=== PATIENT | male | born 1935 | race Caucasian/White ===

== ENCOUNTER 2023-11-23 16:31 | Emergency (ER) | payer OTHER, SELFPAY ==
[2023-11-23 16:37] VITALS: BP 165/86
[2023-11-23 17:16] LABS: % Basophils 0.7 % (0-2); % Eosinophils 5.4 % (0-6); % Immature Granulocytes 0.2 % (0-0.5); % Lymphocytes 27.6 % (20.5-51.1); % Monocytes 15.9 % (1.7-9.3); % Neutrophils 50.2 % (42.2-75.2); Absolute Eosinophils 0.3 10^3/uL (0-0.7); Absolute Lymphocytes 1.3 10^3/uL (1.2-3.4); Absolute Monocytes 0.7 10^3/uL (0.1-0.6); Absolute Neutrophils 2.3 10^3/uL (1.4-6.5); Hematocrit 39.3 % (39.0-52.0); Hemoglobin 13.2 g/dL (13.0-18.0); Mean Corp Hgb Conc. 33.6 g/dL (33.0-37.0); Mean Corpuscular Volume 95.2 fL (80.0-94.0); Nucleated Red Blood Cells % 0 % (-); Platelet Count 211 10^3/uL (130-400); Red Blood Cell Count 4.13 10^6/uL (4.70-6.10); Red Cell Dist. Width 12.5 % (11.5-14.5); White Blood Cell Count 4.6 10^3/uL (4.8-10.8)
[2023-11-23 17:24] LABS: ALT (SGPT) 27 U/L (0-50); AST (SGOT) 36 U/L (17-59); Albumin 4.5 g/dl (3.5-5.0); Alkaline Phosphatase 38 U/L (38-126); Blood Urea Nitrogen 21 mg/dl (9-20); Calcium 9.8 mg/dl (8.4-10.2); Carbon Dioxide 28 mmol/L (22-30); Chloride 96 mmol/L (98-107); Glucose 98 mg/dl (70-99); Potassium 4.7 mmol/L (3.5-5.1); Sodium 131 mmol/L (135-145); Total Bilirubin 0.7 mg/dl (0.2-1.3); Total Protein 6.8 g/dl (6.3-8.2); eGFR > 60.00
[2023-11-23 17:34] LABS: Troponin I < 0.012 ng/ml
[2023-11-23 18:29] VITALS: BP 144/73
[2023-11-23 19:00] VITALS: BP 148/81
--- NOTE | 2023-11-23 19:20 | ED.GENMED ---
History of Present Illness
General
Chief Complaint: Cough
Source: patient
Exam Limitations: none
Time Seen by Provider: 11/23/23 19:07
Travel History
Have you had any contact with someone who has COVID-19?: No
Do you have any symptoms of coronavirus? Fever > 100 degrees, chills, cough, shortness of breath, sore throat, loss of taste or smell, muscle aches, or headache?: No
History of Present Illness
History of Present Illness:
This is a 88 year old male that comes in with c/o cough. State that on Saturday he went to the PCP for a cough. States that he was given a Z-pack and Tessalon Pearls. States that he continued to cough so on Saturday he went to . States that they
tested him for COVID and it was negative. States that they increased the dosage on the Tessalon Pearls to 200mg. States that he is still coughing and wheezing. States that he finished the Z-pack tomorrow. States that below his ribs bilateral is
sore and he feels dizzy on and off. Denies any fever, chills, chest pain, SOB, abd pain, nausea, vomiting, diarrhea, headache, urinary burning.
Past History
Past History
ED Past Medical History: Arrthythmia (Atrial fib), Cancer (Skin cancer with Mohs procedure. ), Hypercholesterolemia, Hypothyroidism and Other (Back pain, Neuropathy, PNA, Diverticulitis, )
ED Past Surgical History: Appendectomy and Other (Patient has a history of shoulder surgery, and colonoscopies, Cataracts, )
Patient has exhibited threatening behavior?: No
PSI?: No
Social History
Tobacco: Non-smoker
Alcohol: Occasional
Personal:
Living: with family
Employment: Retired
Review of Systems
Review of Systems
All Other Systems: ROS reviewed and negative except as documented in HPI and ROS
Constitutional: Reports no symptoms; Denies fever or chills
EENT: Reports no symptoms
Respiratory: Reports cough; Denies trouble breathing
Cardiac: Reports no symptoms; Denies chest pain
ABD/GI: Reports no symptoms; Denies abdominal pain, nausea, vomiting or diarrhea
: Reports no symptoms; Denies dysuria, frequency or urgency
Musculoskeletal: Reports no symptoms
Neurological: Reports dizzy (on and off); Denies headache
Psychiatric: Reports no symptoms
Phy Exam
General Physical Exam
General Presentation: no apparent distress
General age: appears stated age
General Skin: warm and dry
General Mental: alert
General Hydration: appears well hydrated
ENT Exam
ENT Exam: TM's normal, pharynx normal and neck supple
Eye Exam
Eye Exam: EOMI
Cardiovascular Exam
Cardiovascular Exam: regular rate/rhythm, no edema and normal peripheral pulses
Pulmonary Exam
Pulmonary Exam: no respiratory distress, no rales, chest non tender, no crackles, no rhonchi and other (with coughing exp wheezing noted. Otherwise lungs clear, Dry cough noted)
Gastrointestinal Exam
Gastrointestinal Exam: normal bowel sounds, non tender, soft, no organomegaly, no pulsatile mass and non distended
Musculoskeletal Exam
Musculoskeletal Exam: full ROM and no edema
Skin Exam
Skin Exam: normal color, warm/dry, no rash and no petechia
Psychiatric Exam
Psychiatric Exam: normal mood/affect
Course
Orders/Labs/Results
Orders:
Orders
11/23/23 16:40
Electrocardiogram (*1) Urgent
Reason for Study: Chest Pain
EKG- Treatment ONCE
11/23/23 17:03
Complete Blood Count/With Diff Urgent
Comprehensive Metabolic Panel Urgent
Troponin I Urgent
11/23/23 19:20
Dexamethasone Sod Phosphate [Decadron] 20 mg IV NOW STA
Abnormal Lab Results
11/23/23
17:03
WBC 4.6 L 10^3/uL
(4.8-10.8)
RBC 4.13 L 10^6/uL
(4.70-6.10)
MCV 95.2 H fL
(80.0-94.0)
MCH 32.0 H pg
(27.0-31.0)
Absolute Monos (auto) 0.7 H 10^3/uL
(0.1-0.6)
Monocytes % 15.9 H %
(1.7-9.3)
Sodium 131 L mmol/L
(135-145)
Chloride 96 L mmol/L
(98-107)
BUN 21 H mg/dl
(9-20)
11/23/23 17:03
11/23/23 17:03
WBC slightly low. Sodium slightly low. Chloride low. Slight Dehydration. Troponin <0.012
Vital Signs
Initial and Last Documented VS:
Initial Vital Signs
Temp Pulse Resp BP Pulse Ox
98.1 F 70 19 165/86 97
11/23/23 16:37 11/23/23 16:37 11/23/23 16:37 11/23/23 16:37 11/23/23 16:37
Last Documented Vital Signs
Temp Pulse Resp BP Pulse Ox
98.1 F 57 15 149/79 98
11/23/23 16:37 11/23/23 19:45 11/23/23 19:45 11/23/23 19:21 11/23/23 19:45
MDM/Problems Addressed
Differential Diagnosis Includes:
PNA, Cough
MDM/Problems Addressed:
This is a 88 year old male that was diagnosed yesterday with Pneumonia. Patient had been put on Z-pack on Saturday and will finish this tomorrow. States that he went to yesterday due to the cough and they increased his Tessalon Pearls. States
that he is still coughing and wheezing.
Will check labs, Give IV steroids
Back into see patient. States that he feels a little better. Explained that the steroid will stay in his system for a day or so. Explained that he has Pneumonia and the cough it not totally going to go away. Continue with the Tessalon Pearls.
Increase his water intake. Follow up with the Family doctor for further evaluation. Return with fever, any SOB. or any other concerns.
Chronic conditions affecting care:
NA
Acute Exacerbation and/or Progression of Chronic Illness:
NA
*Pulse Oximetry
Patient hypoxic: no
*EKG
Interpreted by ED Provider?: Yes
Heart Rate: 59
Rate: bradycardiac
Rhythm: sinus and PVC's
[place]: normal axis
Interval: first degree heart block
QRS Pattern: normal QRS
Ischemia: no ischemia
*Solutions Engineer Interpretation
Rate: normal
Heart Rate: 72
Rhythm: sinus
*Critical Care Note
Total Time (30-74mins, 75-104mins- exclusive of procedures): Not Applicable
ED Attending Note
-
Portions of this chart may have been created with voice recognition software.� Occasional wrong word or��sound alike� substitutions may have occurred due to the inherent limitations of voice recognition software.
Discharge Plan
Departure
Patient Disposition: Home (Routine Discharge)
Date of Disposition: 11/23/23
Time of Disposition: 20:57
Patient with high blood pressure during this ER visit?: Yes
Condition: Good
Covid-19: Not Applicable
Discharge Problem:
Cough due to Pneumonia
Instructions: Pneumonia, Adult (DC), Cough, Adult (DC), BLOOD PRESSURE
Prescriptions:
New
prednisone 20 mg tablet
40 mg PO DAILY Qty: 10 0RF
No Action
polyethylene glycol 3350 17 GRAMS powder in packet
17 grams PO DAILY
cyanocobalamin (vitamin B-12) 1,000 MCG tablet
1 tab PO DAILY
docosahexaenoic acid-epa 1 CAP capsule
2,400 cap PO DAILY
vitamin E (dl, acetate) 400 UNITS capsule
400 units PO DAILY
ascorbic acid (vitamin C) [Vitamin C] 500 MG tablet
1,000 mg PO BID
naproxen sodium [Aleve] 220 MG tablet
1 tab PO BID PRN (Reason: pain)
acetaminophen [Tylenol] 325 MG capsule
650 mg PO PRN PRN (Reason: pain)
Probiotic 1 EACH capsule
1 ea PO DAILY
tramadol 50 mg Tablet
50 mg PO PRN PRN (Reason: pain)
rosuvastatin 10 mg Tablet
10 mg PO QPM
Centrum Silver Tablet
1 tab PO DAILY
cholecalciferol (vitamin D3) [Vitamin D3] 50 mcg (2,000 unit) Tablet
100 mcg PO DAILY
levothyroxine 75 mcg Tablet
75 mcg PO DAILY
oxycodone 5 mg Tablet
5 mg PO Q6H PRN (Reason: pain)
diazepam [Valium] 2 mg tablet
2 mg PO BID PRN (Reason: muscle spasm) Qty: 7 0RF
Referrals:
Gordon Hair Jr., DO [Family Provider] - Follow up in 2-3 days
Activity Restrictions/Additional Instructions:
As discussed, your blood work shows that your WBC are very slightly low. Your sodium is slightly low and you are slightly dehydration. Please increase your water intake to 8-8oz glasses daily. Finish the Z-pack that you were given. You have been
given IV steroids here and a prescription has been sent to your Pharmacy to help decrease the inflammation and help the cough. Follow up with the family doctor for recheck. IF YOU HAVE FEVER THAT IS NOT CONTROLLED, SHORTNESS OF BREATH, OR YOU HAVE
ANY OTHER CONCERNS PLEASE RETURN TO THE EMERGENCY ROOM.
Interventions
Interventions:
*Risk Screen - Suicide Last Done: 11/23/23 18:25
*General Assessment Last Done: 11/23/23 16:39
*Neglect/Abuse Screening Last Done: 11/23/23 18:25
ED- Fall Risk Assessment Last Done: 11/23/23 18:25
*ED COVID-19 Vaccine History Last Done: 11/23/23 16:39
ED- Pulmonary Assessment Last Done: 11/23/23 18:25
Discharge Date and Time
Print Language: DANISH
[2023-11-23 19:21] VITALS: BP 149/79
[2023-11-23] MEDS: DECADRON 20 MG IV (19:25)
[2023-11-23 20:00] VITALS: BP 163/80
[2023-11-23 21:00] VITALS: BP 176/88
== END 2023-11-23 21:12 | disposition home or self-care (01) ==
LOC: EMR 16:31
PROVIDERS: Emergency Medicine; EMERGENCY PHYSICIAN Emergency Medicine; FAMILY PHYSICIAN Family Medicine
DX: R05.9 Cough, unspecified (principal); J18.9 Pneumonia, unspecified organism; I48.91 Unspecified atrial fibrillation; E78.00 Pure hypercholesterolemia, unspecified; E03.9 Hypothyroidism, unspecified; E86.0 Dehydration; Z85.828 Personal history of other malignant neoplasm of skin; Z90.49 Acquired absence of other specified parts of digestive tract
CPT/HCPCS: 99283; 96374; 80053; 84484; 85025; 93005

== ENCOUNTER → 2023-12-23 08:47 | Outpatient (REF) | payer OTHER, SELFPAY | LOC: RAD 08:47 | PROVIDERS: ATTENDING PHYSICIAN Family Medicine | DX: J18.9 Pneumonia, unspecified organism (principal) | CPT/HCPCS: 71046 ==

== ENCOUNTER → 2024-05-27 17:44 | Outpatient (REF) | payer OTHER, SELFPAY | LOC: RAD 17:44 | PROVIDERS: ATTENDING PHYSICIAN Physician Assistant Medical; FAMILY PHYSICIAN Family Medicine | DX: R05.9 Cough, unspecified (principal) | CPT/HCPCS: 71046 ==

== ENCOUNTER 2024-10-16 13:04 | Inpatient (IN) | payer OTHER, SELFPAY ==
[2024-10-16] VITALS (18 sets, daily range): BP systolic 122–160; BP diastolic 57–82; PULSE 59–78; BMI 26.3; BMI 24.8
[2024-10-16] MEDS: NSS 1000 IV ×2 (08:13→17:30)
[2024-10-16 08:20] LABS: % Basophils 0.2 % (0-2); % Eosinophils 1.3 % (0-6); % Immature Granulocytes 0.4 % (0-0.5); % Lymphocytes 10.9 % (20.5-51.1); % Monocytes 8.1 % (1.7-9.3); % Neutrophils 79.1 % (42.2-75.2); Absolute Eosinophils 0.1 10^3/uL (0-0.7); Absolute Monocytes 0.8 10^3/uL (0.1-0.6); Absolute Neutrophils 7.3 10^3/uL (1.4-6.5); Hematocrit 39.2 % (39.0-52.0); Hemoglobin 13.6 g/dL (13.0-18.0); Mean Corp Hgb Conc. 34.7 g/dL (33.0-37.0); Mean Corpuscular Hgb 32.2 pg (27.0-31.0); Mean Corpuscular Volume 92.9 fL (80.0-94.0); Mean Platelet Volume 10.6 fL (7.4-10.4); Nucleated Red Blood Cells % 0 % (-); Platelet Count 190 10^3/uL (130-400); Red Blood Cell Count 4.22 10^6/uL (4.70-6.10); Red Cell Dist. Width 12.8 % (11.5-14.5); White Blood Cell Count 9.3 10^3/uL (4.8-10.8)
[2024-10-16 08:39] LABS: ALT (SGPT) 25 U/L (0-50); AST (SGOT) 30 U/L (17-59); Albumin 3.9 g/dl (3.5-5.0); Alkaline Phosphatase 37 U/L (38-126); Blood Urea Nitrogen 20 mg/dl (9-20); Calcium 9.6 mg/dl (8.4-10.2); Carbon Dioxide 21 mmol/L (22-30); Chloride 103 mmol/L (98-107); Estimated Creatinine Clearance 65 ml/min; Glucose 147 mg/dl (70-99); Sodium 131 mmol/L (135-145); Total Bilirubin 0.8 mg/dl (0.2-1.3); Total Protein 6.1 g/dl (6.3-8.2); eGFR > 60.00
--- NOTE | 2024-10-16 09:29 | ED.GENMED ---
History of Present Illness
General
Chief Complaint: Fainting/Passed Out
Source: patient
Exam Limitations: none
Time Seen by Provider: 10/16/24 08:34
Nursing documentation reviewed up to this point in time: agreed with
History of Present Illness
History of Present Illness:
Patient presents to ED for evaluation after witnessed syncopal episode this morning. Patient states that he woke up this morning at 4 AM with severe abdominal pain. This morning while he was in the kitchen, his abdominal pain worsened. Patient
told his that he needs to sit down. After she sat on the chair, this is when patient became pale, diaphoretic, and passed out for brief period. Spouse was able to yell his name and wake him up within short period. When paramedics arrived,
patient was found to be alert and awake, but hypotensive and ill-appearing. Patient was given IV fluids en route to the hospital. Patient unfortunately has had number of similar symptoms in the past, often attributed to dehydration. However,
patient does state that he is drinking adequate amount of water currently. Denies recent change in medications or diet. Denies recent illness.
Past History
Past History
ED Past Medical History: Arrthythmia (Atrial fib), Cancer (Skin cancer with Mohs procedure. ), Hypercholesterolemia, Hypothyroidism and Other (Back pain, Neuropathy, PNA, Diverticulitis, )
ED Past Surgical History: Appendectomy and Other (Patient has a history of shoulder surgery, and colonoscopies, Cataracts, )
Patient has exhibited threatening behavior?: No
PSI?: No
Social History
Tobacco: Non-smoker
Alcohol: Occasional
Personal:
Living: with family
Employment: Retired
Review of Systems
Review of Systems
Allergies reviewed?: Yes
All Other Systems: ROS reviewed and negative except as documented in HPI and ROS
Constitutional: Reports no symptoms; Denies fever or chills
Respiratory: Reports no symptoms
Cardiac: Reports diaphoresis and syncope
ABD/GI: Reports abdominal pain; Denies nausea, vomiting or diarrhea
Musculoskeletal: Reports no symptoms
Skin: Reports no symptoms
Neurological: Reports no symptoms
Phy Exam
Physical Exam
Physical Exam:
Physical Exam
General: no apparent distress, not acutely ill
Head: nc/at. eomi
Neck: supple. normal range of motion.
Heart: s1/s2 regular rate and rhythm, no murmur.
Lungs: no acute respiratory distress. clear bilaterally
Abdomen: normal bowel sounds. not tender.
Neuro: alert and oriented x 3. no focal neurological deficits.
Skin: no rash. equal b/l femoral pulse
Psychiatric: well kept. interactive and cooperative
Extremities: no edema. no calf tenderness.
Course
Orders/Labs/Results
Orders:
Orders
10/16/24 08:02
EKG [Electrocardiogram (*1)] Urgent
Reason for Study: Vertigo / Dizzy
10/16/24 08:03
EKG- Treatment ONCE
10/16/24 08:10
Complete Blood Count/With Diff Urgent
Comprehensive Metabolic Panel Urgent
Lipase Urgent
Comment: ADD ON
Serum Osmolality Urgent
Comment: ADD ON
10/16/24 08:13
0.9% Sodium Chloride 1000 ml [Nss] 1,000 ml IV BOLUS
10/16/24 08:21
Add On- LAB Urgent
Tests Added?: Lipase
10/16/24 08:58
Add On- LAB Urgent
Tests Added?: magnesium, serum osm
10/16/24 09:15
CT Angio Abd/Pelvis w/wo IV [CT Abd/pelvis Angio W/wo Iv] Urgent
Comment:
Reason For Exam: Abdominal pain w syncope
10/16/24 09:37
Osmolality, Random Urine Urgent
Date Specimen was Collected: 10/16/24
Time Specimen was Collected: 09:12
Urine Sodium Urgent
Date Specimen was Collected: 10/16/24
Time Specimen was Collected: 09:12
10/16/24 09:39
Prothrombin Complex(Pcc),Human [Kcentra] 2,077.5 unit Empty Viaflex Container 100 ml [Viaflex Empty Container] 0 ml IV NOW
Does patient have a dx of serious acute active bleeding?: Yes
Does patient have prior history of HIT?: No
Urgent surgery/invasive procedure planned in next 6 hours?: Yes
10/16/24 09:53
Alpha Fetoprotein-Male/Tumor marker [AFP Male/Tumor Marker] Stat
CEA Stat
Magnesium Urgent
10/16/24 12:28
Admit/Transfer Patient As Directed
Co-Sign Provider:
Level of Care: Inpatient admission
Assign to:: Telemetry
Physician / Group: alia linder
Diagnosis: SBO
Reason for Telemetry: Arrhythmia
Date to Stop Telemetry: 10/19/24
Time to Stop Telemetry: 11:00
Reason for Hospitalization: SBO
Expected length of stay greater than two midnights?: Yes
ELOS- Estimated Length of Stay in days: 3
I certify the patient meets the requirements for IP care: Yes
PRN Pain Medication Management As Directed
May give lesser potent ordered pain med per pt: Yes
preference::
Protocol:: Medication orders for pain may be administered in a
manner that supports deferring to patient preference
when the pt is:
- Requesting an ordered lesser potent pain medication.
Least to most potent pain medications are defined
as: acetaminophen < NSAID < tramadol < opioids
(morphine, oxycodone, hydromorphone).
- Requesting a lesser dose of the same medication IF
ORDERED.
- Requesting a less intrusive route of administration
if both routes are prescribed by the provider (PO <
IV).
10/16/24 12:29
Code Status As Directed
Resuscitation Status: Do not resuscitate
Reached after discussion with pt or family/Healthcare POA: Yes
DNR Bracelet Application ONCE
10/16/24 12:33
Echo 2D MMode Color/Doppler Routine
Reason for Study: sob
Hep Liver [Ezvis-Uakk-Tsanxbt] Routine
MR Abdomen W/o & W Contrast Routine
Comment:
Reason For Exam: abdominal pain
Recent pill cam endoscopy?: No
Orthostatic Vital Signs As Directed
Orthostatic VS Frequency: BID
10/16/24 12:34
CARDIOLOGY CONSULT Routine
Consulting Provider: Justen Clark
Was physician already notified: Yes
SURGICAL CONSULT Routine
Consulting Provider: Francis Martinez
Was physician already notified: Yes
10/17/24 06:00
TSH Reflex To Free T4 IN AM
10/19/24 11:00
DC Protocol for Telemetry ONCE
Abnormal Lab Results
10/16/24 10/16/24
08:10 09:37
RBC 4.22 L 10^6/uL
(4.70-6.10)
MCH 32.2 H pg
(27.0-31.0)
MPV 10.6 H fL
(7.4-10.4)
Absolute Neuts (auto) 7.3 H 10^3/uL
(1.4-6.5)
Absolute Lymphs (auto) 1.0 L 10^3/uL
(1.2-3.4)
Absolute Monos (auto) 0.8 H 10^3/uL
(0.1-0.6)
Neutrophils % 79.1 H %
(42.2-75.2)
Lymphocytes % 10.9 L %
(20.5-51.1)
Sodium 131 L mmol/L
(135-145)
Carbon Dioxide 21 L mmol/L
(22-30)
Glucose 147 H mg/dl
(70-99)
Alkaline Phosphatase 37 L U/L
(38-126)
Total Protein 6.1 L g/dl
(6.3-8.2)
Urine Sodium 117 H mmol/L
(30-90)
10/16/24 08:10
10/16/24 08:10
Vital Signs
Initial and Last Documented VS:
Initial Vital Signs
BP
136/67
10/16/24 08:05
Last Documented Vital Signs
Temp Pulse Resp BP Pulse Ox
97.7 F 64 15 122/68 93
10/16/24 08:13 10/16/24 13:45 10/16/24 13:45 10/16/24 13:39 10/16/24 13:45
MDM/Problems Addressed
MDM/Problems Addressed:
CT abdomen pelvis report reviewed and discussed with patient and spouse, including what is likely incidental hepatic lesion, which will need f/u with his PCP upon discharge from the hospital.
Patient does state that he had small bowel movement during observation in ED, although with continual pain. It is possible that his small bowel obstruction may be resolving or may represent ileus, which may be resolving. Nonetheless, in light of
patient's continued symptoms along with syncope, patient will be admitted for further evaluation and treatment. No indication for NG tube placement at this time.
*Critical Care Note
Total Time (30-74mins, 75-104mins- exclusive of procedures): Not Applicable
ED Attending Note
-
Portions of this chart may have been created with voice recognition software.� Occasional wrong word or��sound alike� substitutions may have occurred due to the inherent limitations of voice recognition software.
Discharge Plan
Departure
Patient Disposition: Admit
Date of Disposition: 10/16/24
Time of Disposition: 11:48
Admit to: Telemetry
Presentation/result/management discussed w/ accepting MD/DO: Hospitalist
Discharge Problem:
Syncope, Small bowel obstruction
Interventions
Interventions:
*Risk Screen - Suicide Last Done: 10/16/24 08:13
*General Assessment Last Done: 10/16/24 08:13
*Neglect/Abuse Screening Last Done: 10/16/24 08:13
ED- Fall Risk Assessment Last Done: 10/16/24 08:13
*ED COVID-19 Vaccine History Last Done: 10/16/24 08:13
*Nursing Disposition Last Done: 10/16/24 15:13
ED- Cardiac Assessment Last Done: 10/16/24 08:13
ED- Neurological Assessment Last Done: 10/16/24 08:13
[2024-10-16 09:35] LABS: Lipase 48 U/L (23-300)
[2024-10-16 10:07] LABS: Osmolality Serum 280 mOsm/kg (275-300)
[2024-10-16 10:18] LABS: Osmolality Urine 593 mOsm/kg (300-900)
[2024-10-16 10:24] LABS: Magnesium 2.1 mg/dl (1.6-2.3)
[2024-10-16 10:39] LABS: Urine Sodium 117 mmol/L (30-90)
--- NOTE | 2024-10-16 12:04 | HPS.HSE ---
Family Physician
-
Family Physician: Gordon Hair Jr.
Chief Complaint
-
Abdominal pain
History of Present Illness
89-year-old with past medical history for A-fib, skin cancer, hyperlipidemia, hypothyroidism, back pain, neuropathy, pneumonia, diverticulitis presented to us with syncopal episode at home. Patient woke up this morning with severe abdominal pain.
Patient became very pale, diaphoretic and passed out couple times. Patient stated dizziness for which he follows up with chiropractor. Patient denied any headache, blurry vision, numbness, tingling. Patient denied any chest pain or short of
breath. Patient vomited once this morning. Patient denied dysuria hematuria. Patient had bowel movement twice at home since this morning and twice here at the hospital.
CT was small bowel obstruction as well as hepatic lesion. Patient received normal saline in ER. Admitted for further management.
Medical History
Past Medical History
Past Medical History: Reports Other
Additional Past Medical History:
Atrial tachycardia
Hypothyroidism
Hemorrhoids
Hypertension
Hyperlipidemia
Peripheral neuropathy
Diverticular disease
Syncope
's degree AV block
Sleep apnea
Annual rash
Dermatitis
Past Surgical History: Reports Other
Additional Past Surgical History:
Appendectomy
Bilateral cataract surgery
Left shoulder repair
[place] tooth removal
Social History
Tobacco: Non-smoker
Alcohol: Occasional
Drug: None
Personal:
Living: With Family
Family History
Family History: Not pertinent
Allergies / Home Medications
Allergies reflects when Allergies were last updated in [facility].
Home Medications with original date entered in [facility]
Allergy/Medication List:
Allergies
Allergy/AdvReac Type Severity Reaction Status Date / Time
acetaminophen Allergy Mild Rash Verified 10/16/24 08:12
house dust mite Allergy Mild Shortness Verified 10/16/24 08:12
of Breath
ciprofloxacin [From Cipro] Allergy Rash Verified 11/23/23 16:38
ciprofloxacin HCl Allergy Rash Verified 11/23/23 16:38
[From Cipro]
clarithromycin Allergy Rash Verified 11/23/23 16:38
[Clarithromycin]
cocamidopropyl betaine Allergy Rash Verified 11/23/23 16:38
moxifloxacin HCl Allergy Rash Verified 11/23/23 16:38
[From Avelox]
Penicillins Allergy Rash Verified 11/23/23 16:38
trazodone Allergy Rash Verified 11/23/23 16:38
Home Medications
cyanocobalamin (vitamin B-12) 1,000 mcg tablet 1,000 mcg PO DAILY 10/18/16
polyethylene glycol 3350 17 gram oral powder packet 17 grams PO DAILY 10/18/16
Lactobacillus acidophilus 10 billion cell capsule (Probiotic) 1 ea PO DAILY 09/26/19
ascorbic acid (vitamin C) 500 mg tablet (Vitamin C) 1,000 mg PO BID 09/26/19
naproxen sodium 220 mg tablet (Aleve) 1 tab PO BIDPRN PRN mild pain 09/26/19
cholecalciferol (vitamin D3) 50 mcg (2,000 unit) tablet (Vitamin D3) 100 mcg PO DAILY 12/28/22
iepgjvhovtka-hmxgliph-ncxjcc tablet 1 tab PO DAILY 12/28/22
rosuvastatin 10 mg tablet 10 mg PO QPM 12/28/22
tramadol 50 mg tablet 50 mg PO BIDPRN PRN moderate pain 12/28/22
fexofenadine 180 mg tablet 180 mg PO DAILY 10/16/24
levothyroxine 88 mcg tablet 88 mcg PO DAILY 10/16/24
melatonin 3 mg tablet 3 mg PO HS 10/16/24
Review of Systems
-
Constitutional: Reports No Symptoms
EENT: Reports No Symptoms
Respiratory: Reports No Symptoms
Cardiac: Reports No Symptoms
Abdomen/GI: Reports Abdominal Pain, Nausea and Vomiting
: Reports No Symptoms
Musculoskeletal: Reports No Symptoms
Skin: Reports No Symptoms
Neurological: Reports No Symptoms
Endocrine: Reports No Symptoms
Hematologic/Lymphatic: Reports No Symptoms
Psych: Reports No Symptoms
Physical Exam
Vital Signs
Vital Signs
Temp Pulse Resp BP Pulse Ox
97.7 F 57 15 141/61 98
10/16/24 08:13 10/16/24 10:00 10/16/24 10:00 10/16/24 10:00 10/16/24 10:00
Physical Exam
General: Well Developed, Well Nourished and No Apparent Distress
HEENT: NormoCephalic, Moist mucous membranes and Atraumatic
Respiratory: Clear
Cardiac: S1/S2 and Regular Rhythm; No Murmur or Rub
GI: Soft, Non Tender, Non Distended and Normal Bowel Sounds; No Organomegaly
Rectal: Deferred by Provider
Musculoskeletal: No Clubbing, No Cyanosis and No Edema
Skin: No Rash
Neuro: AO x 3 and Nonfocal/grossly intact
Psych: Calm
Laboratory Results
-
10/16/24 08:10
10/16/24 08:10
Laboratory Results
Total Bilirubin 0.8 mg/dl (0.2-1.3) 10/16/24 08:10
AST 30 U/L (17-59) 10/16/24 08:10
ALT 25 U/L (0-50) 10/16/24 08:10
Alkaline Phosphatase 37 U/L (38-126) L 10/16/24 08:10
Lipase 48 U/L (23-300) 10/16/24 08:10
Data Reviewed
-
CT Scan: Report Reviewed by me
Lab Data: Labs Reviewed by me
Impression/Plan
-
# Syncope likely from pain
-Obtain orthostatics
-Fluids continued
-Continue to monitor
# Abdominal pain secondary to resolving small bowel obstruction
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
-CT abdomen pelvis with impression of several new small hypodense lesions within the liver. While nonspecific, they do raise concern for the presence of hepatic metastatic disease. Multiple dilated distal small bowel loops which extend into the
ileocecal valve. Findings are suspicious for small bowel obstruction.
-Obtain alpha fetoprotein, CEA, hep panel
-Obtain MRI of abdomen
-Consider GI consult pending MRI of abdomen
-Clear liquid diet
-Surgery consulted
# Chronic hyponatremia
-Sodium 131
-BMP in a.m.
# Sinus bradycardia/right bundle branch block
-Cardiology consulted
-Obtain TSH/T4
-Obtain echo
# Hypothyroidism
-Levothyroxine continued
# Hyperlipidemia
-Statin continued
# DVT prophylaxis
-Lovenox
# CODE STATUS
-DNR
--- NOTE | 2024-10-16 12:30 | W.PN.UPDATE ---
Addendum entered and electronically signed by Librado Castanon MD 10/16/24 12:38:
Known to CBC card - Dr Donato
- Consult CBC card
No prior HX Hep C
No HX ETOH use disorder
Patient and spouse acknowledged abn CT AP for several new small hypodense lesions within the liver
- proceed with MRI abdo w/wo
Original Note:
Update Note
Progress Note Update
This note serves as an addendum to the H&P by securities teller RICHELLE
Amanda AARON
HPI
89M Non smoker HX Prx AF, remote HX Syncope in , diverticulitis, hypothyroid, HLD, neuropathy, HX appendectomy seen at ER:
- witnessed syncopal episode this morning
- woke up this morning at 4 AM with severe abdominal pain and it worsened
- after he sat on the chair, this is when patient became pale, diaphoretic, and passed out for brief period.
- Spouse was able to yell his name and wake him up within short period.
- When paramedics arrived, patient was found to be alert and awake, but hypotensive and ill-appearing.
- Patient was given IV fluids en route to the hospital.
- HX similar symptoms in the past, often attributed to dehydration.
- However, patient does state that he is drinking adequate amount of water currently.
ROS:
Denies recent change in medications or diet. Denies recent illness.
Reviewed VS:
Vital Signs
Temp Pulse Resp BP Pulse Ox
97.7 F 57 15 141/61 98
10/16/24 08:13 10/16/24 10:00 10/16/24 10:00 10/16/24 10:00 10/16/24 10:00
PE
NAD , not toxic
Head; nc/at. eomi
Neck: supple. normal range of motion.
CVS: s1/s2 regular rate and rhythm, no murmur.
Lungs: no acute respiratory distress. clear bilaterally
Abdomen: normal bowel sounds. not tender.
Neuro: alert and oriented x 3. no focal neurological deficits.
Skin: no rash. equal b/l femoral pulse
Extremities: no edema. no calf tenderness.
Psychiatric: well kept. interactive and cooperative
Data
Unremarkable CBC
Na 131 Cl 103 Sr Osm 280 ( low) Ur Osm 593 Ur Na 117
K 5
Nl Cr and nl eGFR
EKG report
SINUS BRADYCARDIA WITH MARKED SINUS ARRHYTHMIA
RIGHT BUNDLE BRANCH BLOCK
ABNORMAL ECG
WHEN COMPARED WITH ECG OF 23-NOV-2023 16:44,
PREMATURE VENTRICULAR COMPLEXES ARE NO LONGER PRESENT
Confirmed by KATHI RODRIGUEZ MD ([id number]) on 10/16/2024 10:33:40 AM
TTE
LVEF 55-60
No significant valvular patholgy
CT Abd/pelvis Angio W/wo Iv
1. Several new small hypodense lesions within the liver. While nonspecific, they do raise concern for the presence of hepatic metastatic disease.
2. Multiple dilated distal small bowel loops which extend into the ileocecal valve. Findings are suspicious for small bowel obstruction, however no definitive transition point identified. The ileocecal valve appears patent. No discrete lesions
identified. Ileus is alternative consideration. Extensive colonic diverticulosis with moderate stool burden.
3. Moderately calcified, normal caliber abdominal aorta. No evidence for aneurysm.
4. Additional findings above.
Last hospitalist admission:
DATE OF ADMISSION: 09/26/2019 - DATE OF DISCHARGE: 09/28/2019
PRINCIPAL DISCHARGE DIAGNOSES:
1. Presyncope.
2. Hyponatremia, presumed euvolemic.
3. Leukopenia.
CHRONIC DISCHARGE DIAGNOSES:
1. History of diverticulitis.
2. Leg cramping.
3. Hypothyroidism.
ASSESSMENT & PLAN
Syncope likely due to severe abdominal pain
Prior HX Syncope presumed vasovagal in 2019
EKG shoes sinus bradycardia with marked sinus arrhythmia
Remote TTE ( 2017) with LVEF 55-60, no significant valvular pathology
- fall precaution
- Ortho VSS
- Tele monitor
- check TSH
- ECHO in AM
- DCA card consult
In NSR, SB
HX Prx AF
- not on blood thinner , not on rate control meds
- f/u TSH
Suspicious for small bowel obstruction, however no definitive transition point identified.
Patent ileocecal valve appears patent.
Had one small BM, possibly resolving SBO?
HX appendectomy
- clear diet
- IVF
- GS consult
Several new small hypodense lesions within the liver
Elderly patient with nl LFTs
- check AFP, CEA
- MRI abdomen/ liver with and without
- Hep C
Hypothyroid
- c/w Synthroid
- check TSH
Hyponatremia; Clinically dehydrated
- patient reports drinking a lot of water since
- s/p 1 L NS at ER
- then cont. NS @ 40/H
- trend Na in AM
HX diverticulitis
- no acute issue
HX Leg cramping
DVT PX; LMWH
DNR per patient
IP TLM
--- NOTE | 2024-10-16 13:12 | CON.CAR ---
Addendum entered and electronically signed by Justen Clark MD 10/16/24 16:49:
I saw and examined the patient.
The FREIGHT WEIGHER's note was reviewed and I agree with the note.
Comment:
89 year old male (known to Dr. Donato, his primary manager of supply chain) with mixed hyperlipidemia, RBBB, sinus bradycardia, vasovagal syncope, and low-grade ectopy who presents with severe abdominal pain, found to have small bowel obstruction. Cardiology
is consulted for near syncope at home prior to admission in the setting of abdominal pain. Patient reports that he was in severe pain, became dizzy, had to sit down, and in that setting his thought that he lost consciousness. He claims that
he was conscious throughout. He has a history of vasovagal syncope which last happened over 1 year ago in the setting of urinating at night. His abdominal pain is improving and he has had 2 bowel movements in the ER. On exam he is comfortable
appearing, CV exam with RRR, no murmurs, clear lungs, no lower extremity edema. ECG shows sinus bradycardia with sinus arrhythmia, chronic RBBB, and no evidence of ischemia. Echo shows normal biventricular function and no significant valvular
disease. Overall his syncope sounds consistent with vasovagal syncope in the setting of pain. We will monitor him on telemetry while he is here, but if he does not have any arrhythmias, I do not think he needs any further cardiac workup. His
echocardiogram reveals no structural heart disease that would account for syncope. Management of small bowel obstruction per primary team.
Original Note:
Consultation
Consultation Request
Date/Time Consultation Requested: 10/16/2024 12:30
Date/Time Consultation Performed: 10/16/2024 13:15
Requesting Provider: JOSEFINA Augustine
Performing Provider: JOSEFINA Mcleod for Dr. Clark
Reason for Consultation: Syncope
Medical History
-
Chief Complaint: Abdominal pain
History of Present Illness:
Deng Gonzalez is an 89 year old male (known to Dr. Donato, his primary manager of supply chain) with mixed hyperlipidemia, RBBB, sinus bradycardia, vasovagal syncope, and low-grade ectopy who presents with severe abdominal pain. In this setting, he had a
syncopal episode. Yesterday, Mr. Gonzalez was in his usual state of health. Overnight, he woke up with abdominal pain. He reports it was severe. He tried to go back to sleep. This morning while in the kitchen with his he had a syncopal
episode. He had not yet eaten and was preparing his breakfast. He reported that he had severe stomach pain his stated he looked pale. She sat him down in the chair and he had a syncopal episode. He had some diaphoresis. She reports his
hands were 'flapping' and she thought maybe he was going to have a seizure. When EMS arrived he was awake, pale, and hypotensive (70/40 mmHg). His last syncopal episode was in the setting of dehydration. Cardiology was consulted for syncope in
the setting of chronic right bundle branch block. A CAT scan showed a small bowel obstruction. It also showed several new small hypodense lesions within the liver concerning for metastatic disease. At the time of this consultation he is feeling
improved. He still has some abdominal pain. No significant events on telemetry.
Past Medical History
Past Medical History: Hypercholesterolemia, Hypothyroidism and Other (RBBB)
Past Surgical History: Appendectomy and Orthopedic
Social History
Tobacco: Non-Smoker
Alcohol: None
Drug: None
Personal:
Living: With Family
Employment: Retired
Family History
Family History: Reviewed & Not Pertinent
Allergies / Home Medications
Allergy/AdvReac Type Severity Reaction Status Date / Time
acetaminophen Allergy Mild Rash Verified 10/16/24 08:12
house dust mite Allergy Mild Shortness Verified 10/16/24 08:12
of Breath
ciprofloxacin [From Cipro] Allergy Rash Verified 11/23/23 16:38
ciprofloxacin HCl Allergy Rash Verified 11/23/23 16:38
[From Cipro]
clarithromycin Allergy Rash Verified 11/23/23 16:38
[Clarithromycin]
cocamidopropyl betaine Allergy Rash Verified 11/23/23 16:38
moxifloxacin HCl Allergy Rash Verified 11/23/23 16:38
[From Avelox]
Penicillins Allergy Rash Verified 11/23/23 16:38
trazodone Allergy Rash Verified 11/23/23 16:38
�Medication �Instructions �Recorded �Confirmed �Type
cyanocobalamin (vitamin B-12) 1,000 mcg PO DAILY 10/18/16 10/16/24 History
1,000 mcg tablet
polyethylene glycol 3350 17 gram 17 grams PO DAILY 10/18/16 10/16/24 History
oral powder packet
Lactobacillus acidophilus 10 1 ea PO DAILY 09/26/19 10/16/24 History
billion cell capsule (Probiotic)
ascorbic acid (vitamin C) 500 mg 1,000 mg PO BID 09/26/19 10/16/24 History
tablet (Vitamin C)
naproxen sodium 220 mg tablet 1 tab PO BIDPRN PRN mild pain 09/26/19 10/16/24 History
(Aleve)
cholecalciferol (vitamin D3) 50 100 mcg PO DAILY 12/28/22 10/16/24 History
mcg (2,000 unit) tablet (Vitamin
D3)
docixbymvdcj-qdpntiny-nsjvxs tablet 1 tab PO DAILY 12/28/22 10/16/24 History
rosuvastatin 10 mg tablet 10 mg PO QPM 12/28/22 10/16/24 History
tramadol 50 mg tablet 50 mg PO BIDPRN PRN moderate pain 12/28/22 10/16/24 History
fexofenadine 180 mg tablet 180 mg PO DAILY 10/16/24 10/16/24 History
levothyroxine 88 mcg tablet 88 mcg PO DAILY 10/16/24 10/16/24 History
melatonin 3 mg tablet 3 mg PO HS 10/16/24 10/16/24 History
Review of Systems
-
History Source: Patient
All other systems: Negative unless noted
Constitutional: Fatigue
EENT: No Symptoms
Respiratory: No Symptoms
Cardiac: No Symptoms
Abdomen/GI: Abdominal Pain
: No Symptoms
Musculoskeletal: No Symptoms
Skin: No Symptoms
Neurological: No Symptoms
Endocrine: No Symptoms
Hematologic/Lymphatic: No Symptoms
Physical Exam
Vital Signs
Temp Pulse Resp BP Pulse Ox
97.7 F 57 15 141/61 98
10/16/24 08:13 10/16/24 10:00 10/16/24 10:00 10/16/24 10:00 10/16/24 10:00
Lab Results
10/16/24 08:10
10/16/24 08:10
Physical Exam
General: Well Developed, Well Nourished, No Apparent Distress and Comfortable
HEENT: Normocephalic, Anicteric and Moist Mucous Membranes
Respiratory: Non Labored Respirations
Cardiac: S1/S2 and Regular Rhythm; Negative Peripheral Edema
Breast: Deferred by me
GI: Soft and Tender
Rectal: Deferred by Provider
Musculoskeletal: No Clubbing, No Cyanosis and No Edema
Skin: Warm and Dry
Neuro: AO x 3
Hematologic/Lymphatic: No Lymphadenopathy
Psych: Calm
Impression / Plan
-
Syncope
-Likely in the setting of pain
-He has had vasovagal syncope in the past
-No significant findings on telemetry in ER
SBO - per primary
RBBB, chronic
Sinus bradycardia, chronic and stable, not on AV gay agents
Abnormal CT, new small hypodense lesions within the liver, while nonspecific, they do raise concern for the presence of hepatic metastatic disease, per primary
Dyslipidemia, rosuvastatin on hold (NPO)
Hypothyroidism, per primary
Data Reviewed
-
EKG: Report Reviewed by me (Sinus bradycardia, RBBB, rate 54)
Medical Tests (Nuc Med, Echo etc): Report Reviewed by me
Labs: Labs Reviewed by me
Old Records: Reviewed
--- NOTE | 2024-10-16 13:33 | EDRN ---
echo currently at the pts bedside
[2024-10-16] MEDS: MORPHINE SULFATE 2 MG IV (13:53)
--- NOTE | 2024-10-16 13:53 | EDRN ---
cardiology currently at the pts bedside
--- NOTE | 2024-10-16 13:55 | EDRN ---
pt being taken to MRI
--- NOTE | 2024-10-16 14:53 | CON.GS ---
Addendum entered and electronically signed by Francis Martinez MD 10/16/24 17:03:
Patient seen and examined with surgical [employer] INSTRUCTOR. Initially discussed with his while patient had MRI and then subsequently followed up with Mr. Gonzalez in the emergency department evaluation after returning.
HPI: 89-year-old male who was in his usual baseline state of health until he developed abdominal pain late last night and into the early a.m. His states that he had quite a large meal for dinner last night that this is very typical for him.
Patient states that he awoke with generalized abdominal pain which progressively became worse. He then acutely developed nausea and vomiting and had a syncopal episode prompting emergency department evaluation. No similar episodes like this in the
past.
Mild chronic constipation for which she takes MiraLAX daily. Last colonoscopy appears to be on 09/23/2015 which identified diverticulosis but no other abnormality therefore given age repeat colonoscopy was not planned.
Currently states that his pain has resolved. He has had 2 bowel movements since presenting to the emergency department. No nausea. No vomiting. He is thirsty and requesting to drink liquids.
PMH: Atrial tachycardia, AV block, CAD, diverticulitis, hypertension, hypercholesterolemia, hypothyroidism, hemorrhoids, peripheral neuropathy, JEFFREY, vertigo
PSH: Appendectomy at 10 years old no additional past abdominal surgical history
AFVSS
NAD AAOx3
ABD: Soft, protuberant and a bit distended. Only slight tenderness on palpation right abdomen. No rebound rigidity or guarding. No palpable masses. No hernias
Laboratory testing notable for CEA 13.6.
CT abdomen/pelvis imaging reviewed. Stool throughout the colon. Distal ileum distended and mildly dilated with small bowel feces sign, small bowel proximal ileus of the dilated and fluid-filled. No exact transition point but there appears to be
some soft tissue thickening at the terminal ileum/junction with cecum
A/P: 89-year-old male with possible distal partial small bowel obstruction which may be occurring ileocecal valve/cecum. Does not appear to be high-grade or complete. CEA is elevated. MRI and CT imaging per radiologist concerning for possible
hepatic lesions which may be suggestive of metastasis.
Okay for clear liquid diet given resolution of presenting symptoms.
Further discussions with patient if he would be interested in undergoing a bowel prep and colonoscopy for further evaluation. This does not appear to be a mechanical small bowel obstruction from intra-abdominal adhesions as transition point is
essentially at the ileocecal valve which could be evaluated with colonoscopy.
Original Note:
Medical History
-
Chief Complaint: abdominal pain
History of Present Illness:
Mr Gonzalez is an 89 yo male with a h/o appendectomy as a child, diverticulitis, HTN, atrial arrythmia who presents with generalized abdominal pain which began last night and progressively worsened. His notes he vomited as well and became pale
and diaphoretic with syncope. He had a normal BM last night and 2 BM's since presenting to the ED. He does struggle with constipation at baseline and takes Miralax daily. His last colonoscopy was in 2016 with diverticular disease noted at that time.
He reports that he is pain free currently and denies active nausea. He is quite thirsty.
Past Medical History
Past Medical History: Arrhythmias (atrial tachycardia, av block, syncope), Diverticulitis, HTN, Hypercholesterolemia, Hypothyroidism and Other (hemorrhoids, peripheral neuropathy, jeffrey, vertigo)
Past Surgical History: Appendectomy (as a 10 year old), Orthopedic (left shoulder) and Other (cataracts, wisdom teeth)
Social History
Tobacco: Non-Smoker
Alcohol: Occasional
Personal:
Living: With Family
Family History
Family History: Reviewed & Not Pertinent
Allergies / Home Medications
Allergy/AdvReac Type Severity Reaction Status Date / Time
acetaminophen Allergy Mild Rash Verified 10/16/24 08:12
house dust mite Allergy Mild Shortness Verified 10/16/24 08:12
of Breath
ciprofloxacin [From Cipro] Allergy Rash Verified 11/23/23 16:38
ciprofloxacin HCl Allergy Rash Verified 11/23/23 16:38
[From Cipro]
clarithromycin Allergy Rash Verified 04/06/24 16:38
[Clarithromycin]
cocamidopropyl betaine Allergy Rash Verified 11/23/23 16:38
moxifloxacin HCl Allergy Rash Verified 11/23/23 16:38
[From Avelox]
Penicillins Allergy Rash Verified 11/23/23 16:38
trazodone Allergy Rash Verified 11/23/23 16:38
�Medication �Instructions �Recorded �Confirmed �Type
cyanocobalamin (vitamin B-12) 1,000 mcg PO DAILY 10/18/16 10/16/24 History
1,000 mcg tablet
polyethylene glycol 3350 17 gram 17 grams PO DAILY 10/18/16 10/16/24 History
oral powder packet
Lactobacillus acidophilus 10 1 ea PO DAILY 09/26/19 10/16/24 History
billion cell capsule (Probiotic)
ascorbic acid (vitamin C) 500 mg 1,000 mg PO BID 09/26/19 10/16/24 History
tablet (Vitamin C)
naproxen sodium 220 mg tablet 1 tab PO BIDPRN PRN mild pain 09/26/19 10/16/24 History
(Aleve)
cholecalciferol (vitamin D3) 50 100 mcg PO DAILY 12/28/22 10/16/24 History
mcg (2,000 unit) tablet (Vitamin
D3)
kxqcxnsaffux-clasiivg-ubnboc tablet 1 tab PO DAILY 12/28/22 10/16/24 History
rosuvastatin 10 mg tablet 10 mg PO QPM 12/28/22 10/16/24 History
tramadol 50 mg tablet 50 mg PO BIDPRN PRN moderate pain 12/28/22 10/16/24 History
fexofenadine 180 mg tablet 180 mg PO DAILY 10/16/24 10/16/24 History
levothyroxine 88 mcg tablet 88 mcg PO DAILY 10/16/24 10/16/24 History
melatonin 3 mg tablet 3 mg PO HS 10/16/24 10/16/24 History
Review of Systems
-
History Source: Patient and Family
All other systems: Negative unless noted
A 10 point review of systems was completed, and was negative except as per HPI.
Physical Exam
Vital Signs
Temp Pulse Resp BP Pulse Ox
97.7 F 57 18 122/68 97
10/16/24 08:13 10/16/24 13:39 10/16/24 13:39 10/16/24 13:39 10/16/24 13:39
10/15/24 10/16/24 10/17/24
06:59 06:59 06:59
Actual Weight 83.1 kg
Body Mass Index (BMI) 26.3
Lab Results
10/16/24 08:10
10/16/24 08:10
WBC 9.3 10^3/uL (4.8-10.8) 10/16/24 08:10
Hgb 13.6 g/dL (13.0-18.0) 10/16/24 08:10
Hct 39.2 % (39.0-52.0) 10/16/24 08:10
Plt Count 190 10^3/uL (130-400) 10/16/24 08:10
Abs Immat Gran (auto) 0.0 10^3/uL (0-0.05) 10/16/24 08:10
Neutrophils % 79.1 % (42.2-75.2) H 10/16/24 08:10
Physical Exam
General: Well Developed and Well Nourished
HEENT: Moist Mucous Membranes
Respiratory: Non Labored Respirations
GI: Soft, Non Tender and Distended (mild to mod)
Skin: Warm and Dry
Neuro: Awake, Alert and AO x 3
Psych: Calm
Data Reviewed
-
CT Scan: Image Personally Visualized and interpreted, Report Reviewed by me, Discussed with Physician, Discussed with Patient and Discussed with Family
MRI: Image Personally Visualized and interpreted, Report Reviewed by me, Discussed with Physician and Discussed with Patient
Labs: Labs Reviewed by me, Discussed with Physician, Discussed with Patient and Discussed with Family
Old Records: Reviewed
Assessment / Plan
-
89 yo male with a h/o appendectomy as a child, diverticulitis, HTN, atrial arrythmia who presents with generalized abdominal pain and syncope with vomiting this am. CT imaging with significant stool burden as well as small bowel distention extending
into the ileocecal valve. Some new small intrahepatic lesions were noted with normal LFT's. MRI done in follow up with similar findings. No leukocytosis. CEA elevated at 13.6. AFVSS.
--Ok for clear liquids
--Continue bowel regimen
--No plans for emergent surgery
--Medical management as per primary team
--- NOTE | 2024-10-16 15:12 | EDRN ---
this RN called the receiving unit and notified them that paper report was going to be tubed up
--- NOTE | 2024-10-16 15:52 | EDRN ---
this RN completed admission questions
[2024-10-16 16:12] LABS: CEA 13.6 ng/ml
[2024-10-16 17:21] LABS: AFP Male/Tumor Marker 2.64 ng/ml
[2024-10-16 17:22] LABS: ALT (SGPT) 27 U/L (0-50); AST (SGOT) 27 U/L (17-59); Albumin 4.3 g/dl (3.5-5.0); Alkaline Phosphatase 53 U/L (38-126); Direct Bilirubin 0.2 mg/dl (0.0-0.4); Total Bilirubin 0.8 mg/dl (0.2-1.3); Total Protein 6.6 g/dl (6.3-8.2)
[2024-10-16] MEDS: CRESTOR 10 MG PO (17:31)
[2024-10-16] MEDS: LOVENOX 40 MG SC (17:31)
[2024-10-16] MEDS: MELATONIN 3 MG PO (20:16)
[2024-10-17 03:28] VITALS: BP 133/74
[2024-10-17] MEDS: SYNTHROID 88 MCG PO (05:29)
--- NOTE | 2024-10-17 05:33 | PTCARENOTE ---
tolerating clear liquids- no pain
[2024-10-17 07:07] LABS: Blood Urea Nitrogen 11 mg/dl (9-20); Calcium 9.6 mg/dl (8.4-10.2); Carbon Dioxide 24 mmol/L (22-30); Chloride 102 mmol/L (98-107); Estimated Creatinine Clearance 74 ml/min; Glucose 108 mg/dl (70-99); Potassium 4.5 mmol/L (3.5-5.1); Sodium 132 mmol/L (135-145); eGFR > 60.00
[2024-10-17 07:44] VITALS: BP 127/79
[2024-10-17 07:53] LABS: TSH Reflex To Free T4 1.99 uIU/ml (0.47-4.68)
--- NOTE | 2024-10-17 08:51 | W.PN.CD ---
Today's Communication / Plan
-
Suspect vasovagal syncope
Discontinue telemetry
Cardiology will sign off at this time. Please call with additional questions or concerns.
Impression / Plan
-
Syncope
-Likely vasovagal in the setting of pain
-He has had vasovagal syncope in the past
-Echo on 10/16/2024 was unremarkable
-No significant findings on telemetry since admission. Okay to discontinue telemetry.
SBO - per primary
RBBB, chronic
Sinus bradycardia, chronic and stable, not on AV gay agents
Abnormal CT, new small hypodense lesions within the liver, while nonspecific, they do raise concern for the presence of hepatic metastatic disease, per primary
Dyslipidemia, rosuvastatin on hold (NPO)
Hypothyroidism, per primary
Subjective: Patient feels well this morning with improved abdominal pain. On liquid diet. No bowel movement since ER. Telemetry unremarkable.
Physical Exam
Vital Signs/Labs
Vital Signs
Temp Pulse Resp BP Pulse Ox
97.9 F 67 18 127/79 98
10/17/24 07:44 10/17/24 07:44 10/17/24 07:44 10/17/24 07:44 10/17/24 07:44
10/16/24 10/17/24 10/18/24
06:59 06:59 06:59
Actual Weight 78.528 kg
10/16/24 08:10
10/17/24 06:30
Magnesium 2.1 mg/dl (1.6-2.3) 10/16/24 09:53
Physical Exam
Constitutional: No acute distress and Comfortable
Cardiovascular: Rhythm & rate is regular, Pedal edema is absent, S1S2 is normal and Murmur/rub/gallop absent
Respiratory: Respiratory effort normal and Lungs clear to auscul.
GI: Soft
Neuro/Psych: AO x 3
Data Reviewed
-
Date of Service: October 17, 2024
Medical Decision Making: Reviewed Test Results, Independent Historian Assessment, Test Interpretation and Review of Case with other Provider
EKG: Tracing Personally Visualized and interpreted
Echo: Report Reviewed by me
Labs: Labs Reviewed by me
[2024-10-17] MEDS: CLARITIN 10 MG PO (10:24)
[2024-10-17 11:11] VITALS: BP 110/55
--- NOTE | 2024-10-17 11:51 | PTCARENOTE ---
Patient intermittently in Bigem/trigem/SR with PVC, HR 70-92. Patient asymptomatic. Physician made aware, Ok to remove tele. No further intervention at this time.
--- NOTE | 2024-10-17 12:05 | W.PN.CRS1 ---
Today's Communication / Plan
-
Colonoscopy tomorrow.
Assessment/Plan
-
Partial small bowel obstruction possibly due to a mass in ileocecal valve on CT scan. There also appears to be some metastatic disease in the liver.
I reviewed the current findings with the patient and discussed the evaluation and treatment options. I recommended colonoscopy and I reviewed the rationale. If the mass is present, he would like to have it removed before a complete obstruction
occurs. Will plan on colonoscopy tomorrow with a bowel prep today. Risks of colonoscopy include, but are not limited to, bleeding, perforation, missed lesions, and complications from sedation. Further management, including possible surgery to
follow. I called and spoke with his on the phone and she to agrees with the plan.
Subjective Data
Subjective Data
Date of Service: October 17, 2024
At present he has no complaints. He denies any pain or bloating. His appetite is good and he moved his bowels.
Objective Data
-
Vital Signs
Temp Pulse Resp BP Pulse Ox
97.9 F 68 16 110/55 99
10/17/24 11:11 10/17/24 11:11 10/17/24 11:11 10/17/24 11:11 10/17/24 11:11
Intake & Output
10/16/24 10/17/24 10/18/24
06:59 06:59 06:59
Intake Total 840 / 840
Output Total 1000 / 1000 400 / 400
Balance -160 / -160 -400 / -400
Intake:
Oral fluids 360 / 360
IV fluids (Total) 480 / 480
Output:
Urine, Voided 1000 / 1000 400 / 400
Other:
Number of approximated MODERATE 1
amounts of urine
Lab Results
10/16/24 08:10
10/17/24 06:30
Physical Exam
-
General: No Acute Distress
Abdomen: Soft, Non Distended and Non Tender
Extremities: No Edema
[2024-10-17 14:20] VITALS: BP 159/71; PULSE 60; O2SAT 99
--- NOTE | 2024-10-17 15:21 | W.PN.HOSP.TC ---
Today's Communication/Plan
-
Colonoscopy tomorrow
Assessment / Plan
Assessment / Plan
89-year-old male presented with syncope
CT of the abdomen and pelvis-small new hypodense lesions in the liver. Multiple dilated small bowel loops extending into the ileocecal valve suspicious for small bowel obstruction with no transition point. Ileocecal valve patent constipation.
Moderate calcified normal caliber aorta
CVS: S1-S2 normal
Chest: CTA B/L
Abdomen: Soft, NT / Bowel sounds present
Extremities: No edema
[employer]: Non focal exam
# Syncope
Likely secondary to abdominal pain-vasovagal
EKG sinus bradycardia-was seen by cardiology
Echo 10/08/2024-normal biventricular size and systolic function. EF 55 to 60%.
#Small bowel obstruction/ileus- Resolving. On clears
# New small hypodense lesions within the liver
AFP normal and CEA borderline elevated
MRI of the abdomen-several scattered small hepatic lesions suspicious for metastasis.
Needs colonoscopy as outpatient
Hematology oncology evaluation
Colonoscopy and biopsy recommended by colorectal
# Mild hyponatremia-consistent with SIADH. Hypertonic fluids while n.p.o.
# Paroxysmal atrial fibrillation-Not on anticoagulants or rate controlling agents
# Hypothyroidism-continue Synthroid 88 mcg
# Hyperlipidemia-continue statin
# Diverticulosis
# Chronic RBBB
# Chronic back pain/neuropathy/scoliosis/DJD/arthritis-patient takes Aleve as needed as outpatient and tramadol
# DVT prophylaxis-Lovenox
# DNR
D/W Cards discussed with at bedside
Discussed with colorectal surgery
Anticipated Discharge: 24 - 48 hours
Subjective/Interval History
-
Date of Service: October 17, 2024
Objective Data
-
Labs:
Laboratory Results
10/17/24
06:30
Sodium 132 L
Potassium 4.5
Chloride 102
Carbon Dioxide 24
BUN 11
Creatinine 0.7
Glucose 108 H
Calcium 9.6
Vital Signs:
Vital Signs
Temp Pulse Resp BP Pulse Ox
97.9 F 68 16 110/55 99
10/17/24 11:11 10/17/24 11:11 10/17/24 11:11 10/17/24 11:11 10/17/24 11:11
I&O
10/16/24 10/17/24 10/18/24
06:59 06:59 06:59
Intake Total 840 / 840
Output Total 1000 / 1000 400 / 400
Balance -160 / -160 -400 / -400
[2024-10-17 15:35] VITALS: BP 130/61
[2024-10-17] MEDS: D5/0.9% SODIUM CHLORIDE 1000 IV (17:10)
[2024-10-17] MEDS: NULYTELY SOLUTION 2 LITERS PO (17:10)
[2024-10-17] MEDS: LOVENOX 40 MG SC (17:12)
[2024-10-17] MEDS: CRESTOR 10 MG PO (17:12)
--- NOTE | 2024-10-17 18:54 | CON.ONC ---
Impression
Impression
Ileus vs bowel obstruction
Liver hypodensities
Syncope
Plan
Plan
Personally reviewed images from CT scan and MRI, liver lesions are subtle.
Plan is noted for colonoscopy tomorrow.
Surgery note indicates plan for probable resecting of near-obstructing mass if identified, with liver lesion biopsy at that time.
Agree with this plan prioritizing the prevention of bowel obstruction.
CEA of 13.6 is elevated but non-specific.
Anticipate outpt PET to eval liver lesions once tissue dx available.
No anemia or uncontrolled pain.
Thank you for consult, will follow along with you.
Patient History
History of Present Illness
89-year-old with past medical history for A-fib, skin cancer, hyperlipidemia, hypothyroidism, back pain, neuropathy, pneumonia, diverticulitis, presented to ED 10/16/24 following syncopal episode at home. Patient awoke with severe abdominal pain.
Patient became very pale, diaphoretic and passed out couple times. Vomited x 1. CT abd/pelvis showed multiple dilated small bowel loops in right lower quadrant without definitive transition point, extending to the ileocecal valve. Several new
small hypodense lesions within the liver. Patient denies unintentional weight loss, loss of appetite, or other symptoms prior to acute presentation.
Past-Medical/Surgical History
Past Medical History
Atrial tachycardia
Hypothyroidism
Hemorrhoids
Hypertension
Hyperlipidemia
Peripheral neuropathy
Diverticular disease
Sleep apnea
Past Surgical History
Appendectomy
Bilateral cataract surgery
Left shoulder repair
[place] tooth removal
Social History
Tobacco: Non-smoker
Alcohol: Occasional
Drug: None
Personal:
Living: With Family
Family History
Family History: Not pertinent due to age
Patient Medication
�Medication �Instructions �Recorded �Confirmed �Last Taken �Type
cyanocobalamin (vitamin B-12) 1,000 mcg PO DAILY 10/18/16 10/16/24 10/16/24 History
1,000 mcg tablet
polyethylene glycol 3350 17 gram 17 grams PO DAILY 10/18/16 10/16/24 01/02/23 History
oral powder packet
Lactobacillus acidophilus 10 1 ea PO DAILY 09/26/19 10/16/24 10/16/24 History
billion cell capsule (Probiotic)
ascorbic acid (vitamin C) 500 mg 1,000 mg PO BID 09/26/19 10/16/24 10/16/24 History
tablet (Vitamin C)
naproxen sodium 220 mg tablet 1 tab PO BIDPRN PRN mild pain 09/26/19 10/16/24 1 Week Ago History
(Aleve) ~12/27/22
cholecalciferol (vitamin D3) 50 100 mcg PO DAILY 12/28/22 10/16/24 10/16/24 History
mcg (2,000 unit) tablet (Vitamin
D3)
mcqlzsauhkcs-jatfelqn-gewsyg tablet 1 tab PO DAILY 12/28/22 10/16/24 10/16/24 History
rosuvastatin 10 mg tablet 10 mg PO QPM 12/28/22 10/16/24 10/15/24 History
tramadol 50 mg tablet 50 mg PO BIDPRN PRN moderate pain 12/28/22 10/16/24 01/03/23 03:00 History
fexofenadine 180 mg tablet 180 mg PO DAILY 10/16/24 10/16/24 10/16/24 History
levothyroxine 88 mcg tablet 88 mcg PO DAILY 10/16/24 10/16/24 10/16/24 History
melatonin 3 mg tablet 3 mg PO HS 10/16/24 10/16/24 10/15/24 History
Active Medications
Generic Name Dose Route Start Last Admin
Trade Name Freq PRN Reason Stop Dose Admin
Cholecalciferol 100 mcg 10/18/24 08:00
Cholecalciferol (Vitamin D3) 50 Mcg Tablet (2,000 Units) PO 11/15/24 07:59
DAILY APRYL
Cyanocobalamin 1,000 mcg 10/18/24 08:00
Cyanocobalamin 1,000 Mcg Tablet PO 11/15/24 07:59
DAILY APRYL
Enoxaparin Sodium 40 mg 10/16/24 18:00 10/17/24 17:12
Enoxaparin Sodium 40 Mg/0.4 Ml Syringe SC 11/13/24 17:59 40 mg
QPM APRYL Administration
Dextrose/Sodium Chloride 1,000 mls @ 50 mls/hr 10/17/24 16:00 10/17/24 17:10
D5/0.9% Sodium Chloride IV 1,000 mls
.Q20H APRYL Administration
Levothyroxine Sodium 88 mcg 10/17/24 06:00 10/17/24 05:29
Levothyroxine 88 Mcg Tablet PO 11/14/24 05:59 88 mcg
DAILY @ 0600 APRYL Administration
Loratadine 10 mg 10/17/24 11:00 10/17/24 10:24
Loratadine 10 Mg Tablet PO 11/14/24 10:59 10 mg
DAILY APRYL Administration
Melatonin 3 mg 10/16/24 22:00 10/16/24 20:16
Melatonin 3 Mg Tablet PO 11/13/24 21:59 3 mg
HS APRYL Administration
Polyethylene Glycol 2 liters 10/18/24 05:00
Colyte (Peg Electrolyte) Solution 4 Liter Bottle PO 10/18/24 05:01
ONCE ONE
Rosuvastatin Calcium 10 mg 10/16/24 18:00 10/17/24 17:12
Rosuvastatin (Crestor) 10 Mg Tablet PO 11/13/24 17:59 10 mg
QPM APRYL Administration
Sodium Chloride 0 flush 10/16/24 18:00
Sodium Chloride 0.9% (Flush) Syringe IV 11/13/24 17:59
PER PROTOCOL APRYL
Tramadol HCl 50 mg 10/16/24 16:54
Tramadol Hcl 50 Mg Tablet PO 03/28/25 16:53
BIDPRN PRN
moderate pain
Review of Systems
-
History Source: Patient
All Other Systems: Reviewed and Negative
Physical Exam
-
General: Well Developed, Well Nourished, No Apparent Distress and Other (Appears younger than stated age)
HEENT: Moist Mucous Membranes; Negative Jaundice
Cardiology: Normal Sinus Rhythm, S1 and S2
Pulmonary: Clear; Negative Wheezes
GI: Soft and Normal Bowel Sounds
Musculoskeletal: No Clubbing, No Cyanosis and No Edema
Extremities: Negative Phlebitic Signs
Neurology: Non Focal
Skin: Warm and Dry
Hematologic / Lymphatic: No Lymphadenopathy
Psych: Calm and Intact Judgement/Insight
Labs
Lab Results
WBC 9.3 10^3/uL (4.8-10.8) 10/16/24 08:10
RBC 4.22 10^6/uL (4.70-6.10) L 10/16/24 08:10
Hgb 13.6 g/dL (13.0-18.0) 10/16/24 08:10
Hct 39.2 % (39.0-52.0) 10/16/24 08:10
MCV 92.9 fL (80.0-94.0) 10/16/24 08:10
MCH 32.2 pg (27.0-31.0) H 10/16/24 08:10
MCHC 34.7 g/dL (33.0-37.0) 10/16/24 08:10
RDW 12.8 % (11.5-14.5) 10/16/24 08:10
Plt Count 190 10^3/uL (130-400) 10/16/24 08:10
MPV 10.6 fL (7.4-10.4) H 10/16/24 08:10
Abs Immat Gran (auto) 0.0 10^3/uL (0-0.05) 10/16/24 08:10
Absolute Neuts (auto) 7.3 10^3/uL (1.4-6.5) H 10/16/24 08:10
Absolute Lymphs (auto) 1.0 10^3/uL (1.2-3.4) L 10/16/24 08:10
Absolute Monos (auto) 0.8 10^3/uL (0.1-0.6) H 10/16/24 08:10
Absolute Eos (auto) 0.1 10^3/uL (0-0.7) 10/16/24 08:10
Absolute Basos (auto) 0.0 10^3/uL (0-0.2) 10/16/24 08:10
Immature Gran % 0.4 % (0-0.5) 10/16/24 08:10
Neutrophils % 79.1 % (42.2-75.2) H 10/16/24 08:10
Lymphocytes % 10.9 % (20.5-51.1) L 10/16/24 08:10
Monocytes % 8.1 % (1.7-9.3) 10/16/24 08:10
Eosinophils % 1.3 % (0-6) 10/16/24 08:10
Basophils % 0.2 % (0-2) 10/16/24 08:10
Creatinine 0.7 mg/dL (0.7-1.3) 10/17/24 06:30
Vital Signs
Vital Signs
Temp Pulse Resp BP Pulse Ox
97.7 F 60 16 130/61 99
10/17/24 15:35 10/17/24 15:35 10/17/24 15:35 10/17/24 15:35 10/17/24 15:35
[2024-10-17] MEDS: MELATONIN 3 MG PO (21:20)
--- NOTE | 2024-10-17 22:07 | PTCARENOTE ---
pt finished first half of bowel prep- second half to be started at 0500- stool getting clear.
[2024-10-17 23:09] VITALS: BP 127/77
[2024-10-18] MEDS: SYNTHROID PO (05:45)
[2024-10-18] MEDS: NULYTELY SOLUTION 2 LITERS PO (05:46)
--- NOTE | 2024-10-18 06:44 | PTCARENOTE ---
second half of prep was started at 0500- prep is complete- pt is clear
[2024-10-18 07:05] LABS: Blood Urea Nitrogen 6 mg/dl (9-20); Calcium 9.7 mg/dl (8.4-10.2); Carbon Dioxide 26 mmol/L (22-30); Chloride 101 mmol/L (98-107); Estimated Creatinine Clearance 74 ml/min; Glucose 125 mg/dl (70-99); Potassium 4.2 mmol/L (3.5-5.1); Sodium 134 mmol/L (135-145); eGFR > 60.00
[2024-10-18 07:57] VITALS: BP 158/75
[2024-10-18] MEDS: VITAMIN D3 (cholecalciferol) 100 MCG PO (09:01)
[2024-10-18] MEDS: CLARITIN 10 MG PO (09:01)
[2024-10-18] MEDS: VITAMIN B-12 1000 MCG PO (09:01)
--- NOTE | 2024-10-18 10:37 | CM ---
CM met with pt bedside
Pt resides with his spouse in a [place] with 1STE
Pt is indep with his ADLs, drives+
Will only utilize [facility] at night
Denies financial insecurities
PCP- Gordon Hair
rx- [facility]
Discharge Disposition- anticipate, home no needs
--- NOTE | 2024-10-18 13:04 | W.PN.HOSP.TC ---
Today's Communication/Plan
-
Colonoscopy today
Assessment / Plan
Assessment / Plan
89-year-old male presented with syncope
CT of the abdomen and pelvis-small new hypodense lesions in the liver. Multiple dilated small bowel loops extending into the ileocecal valve suspicious for small bowel obstruction with no transition point. Ileocecal valve patent constipation.
Moderate calcified normal caliber aorta
CVS: S1-S2 normal
Chest: CTA B/L
Abdomen: Soft, NT / Bowel sounds present
Extremities: No edema
# Syncope
Likely secondary to abdominal pain-vasovagal
EKG sinus bradycardia-was seen by cardiology
Echo 10/08/2024-normal biventricular size and systolic function. EF 55 to 60%.
#Small bowel obstruction/ileus- Resolving.
# New small hypodense lesions within the liver
AFP normal and CEA borderline elevated
MRI of the abdomen-several scattered small hepatic lesions suspicious for metastasis.
Needs colonoscopy as outpatient
Hematology oncology evaluation
Colonoscopy and biopsy today
# Mild hyponatremia-consistent with SIADH. Hypertonic fluids while n.p.o.
# Paroxysmal atrial fibrillation-Not on anticoagulants or rate controlling agents
# Hypothyroidism-continue Synthroid 88 mcg
# Hyperlipidemia-continue statin
# Diverticulosis
# Chronic RBBB
# Chronic back pain/neuropathy/scoliosis/DJD/arthritis-patient takes Aleve as needed as outpatient and tramadol
# DVT prophylaxis-Lovenox
# DNR
Discussed with colorectal surgery
D/W RN
Anticipated Discharge: 24 - 48 hours
Subjective/Interval History
-
Date of Service: October 18, 2024
Objective Data
-
Labs:
Laboratory Results
10/18/24
06:14
Sodium 134 L
Potassium 4.2
Chloride 101
Carbon Dioxide 26
BUN 6 L
Creatinine 0.7
Glucose 125 H
Calcium 9.7
Vital Signs:
Vital Signs
Temp Pulse Resp BP Pulse Ox
97.4 F 65 14 158/75 99
10/18/24 07:57 10/18/24 07:57 10/18/24 07:57 10/18/24 07:57 10/18/24 07:57
I&O
10/17/24 10/18/24 10/19/24
06:59 06:59 06:59
Intake Total 840 / 840 3410 / 3410
Output Total 1000 / 1000 1450 / 1450
Balance -160 / -160 1959 / 1959
--- NOTE | 2024-10-18 14:46 | W.PN.UPDATE ---
Update Note
Progress Note Update
Colonoscopy to cecum. The prep was adequate. There is a mass at the ileocecal valve that is partially obstructing. Biopsies obtained but difficult due to angulation. Esquivel-diverticular disease also noted.
Surgery (right colon resection and liver biopsy) tentatively scheduled for tomorrow.
[2024-10-18] MEDS: D5/0.9% SODIUM CHLORIDE 1000 IV (15:21)
--- NOTE | 2024-10-18 15:30 | PTCARENOTE ---
Received patient from GI lab. Patient AAOx3, no c/o pain. Patient ambulated from stretcher to bed. Call baker in reach, at bedside. Patient instructed to call for Rn before getting OOB, patient verbalized understanding.
[2024-10-18 15:34] VITALS: BP 146/74
[2024-10-18] MEDS: LOVENOX 40 MG SC (18:22)
[2024-10-18] MEDS: CRESTOR 10 MG PO (18:22)
[2024-10-18] MEDS: MELATONIN 3 MG PO (21:34)
[2024-10-18 23:18] VITALS: BP 106/46
[2024-10-19] VITALS (12 sets, daily range): BP systolic 125–148; BP diastolic 64–92; BMI 24.8
[2024-10-19] MEDS: SYNTHROID 88 MCG PO (06:01)
[2024-10-19 08:02] LABS: Hematocrit 35.4 % (39.0-52.0); Hemoglobin 12.5 g/dL (13.0-18.0); Mean Corp Hgb Conc. 35.3 g/dL (33.0-37.0); Mean Corpuscular Hgb 32.1 pg (27.0-31.0); Mean Platelet Volume 10.9 fL (7.4-10.4); Platelet Count 182 10^3/uL (130-400); Red Blood Cell Count 3.89 10^6/uL (4.70-6.10); Red Cell Dist. Width 12.7 % (11.5-14.5); White Blood Cell Count 4.5 10^3/uL (4.8-10.8)
[2024-10-19 08:16] LABS: Blood Urea Nitrogen 5 mg/dl (9-20); Calcium 9.4 mg/dl (8.4-10.2); Carbon Dioxide 24 mmol/L (22-30); Chloride 102 mmol/L (98-107); Estimated Creatinine Clearance 74 ml/min; Glucose 111 mg/dl (70-99); Sodium 134 mmol/L (135-145); eGFR > 60.00
[2024-10-19] MEDS: VITAMIN B-12 1000 MCG PO (08:42)
[2024-10-19] MEDS: CLARITIN 10 MG PO (08:42)
[2024-10-19] MEDS: VITAMIN D3 (cholecalciferol) 100 MCG PO (08:42)
--- NOTE | 2024-10-19 09:32 | W.PN.GS2 ---
Today's Communication / Plan
-
OR today
Type and screen
Assessment / Plan
-
This is an 89-year-old male with a history of remote open appendectomy, A-fib, skin cancer, hyperlipidemia, hypothyroidism, diverticulitis who presented to our hospital 10/16/2024 following a syncopal episode at home and awoke with severe abdominal
pain. CT abdomen pelvis showed multiple dilated loops of bowel in the right lower quadrant extending to the ileocecal valve with concern for a mass in this area. Dr. Soliman performed a colonoscopy on 10/18/2024 which demonstrated a near obstructing
mass at the ileocecal valve, biopsies pending. CEA is elevated. There were also liver lesions suspicious metastatic spread.
Given the near obstructing nature of his cancer we will proceed with surgery first.
Will plan for a laparoscopic, possible open right hemicolectomy with possible liver biopsy in the OR today. He is already prepped for of his colonoscopy yesterday.
He will need a completion CT chest at some point to complete staging.
Risks/Benefits/Alternatives, expected postoperative course and possible complications (bleeding, anastomotic leak, infection, injury to surrounding structures, acute/chronic pain) discussed at length. Patient wishes to proceed with surgery. All
questions answered. Consent obtained.
I spent 45 minutes in total for the care of this patient today including direct patient care and counseling, reviewing labs, imaging, coordination of care, as well as documentation.
Time Spent
Total Time Spent with Patient (in minutes): 20
Subjective Data
-
Date of Service: October 19, 2024
Interval Events:
No acute events overnight. Slept well. Pain Controlled. Denies Nausea/Vomiting, +bowel function.
Objective Data
-
Intake and Output
10/18/24 10/19/24 10/20/24
06:59 06:59 06:59
Intake Total 3410 / 3410 900 / 900
Output Total 1450 / 1450 1800 / 1800
Balance 1959 / 1959 -900 / -900
Intake:
Oral fluids 2960 / 2960
IV fluids (Total) 450 / 450 900 / 900
Output:
Urine, Voided 1450 / 1450 1799 / 1799
Other:
Number of approximated LARGE 6
amounts of urine
Number of unmeasured liquid
stools
Rectum 6
Vital Signs
Temp Pulse Resp BP Pulse Ox
97.6 F 61 17 142/72 98
10/19/24 07:42 10/19/24 07:42 10/19/24 07:42 10/19/24 07:42 10/19/24 07:42
Lab Results
10/19/24 07:39
10/19/24 07:39
Calcium 9.4 mg/dl (8.4-10.2) 10/19/24 07:39
Magnesium 2.1 mg/dl (1.6-2.3) 10/16/24 09:53
Total Bilirubin Cancelled 10/16/24 12:33
Direct Bilirubin Cancelled 10/16/24 12:33
AST Cancelled 10/16/24 12:33
ALT Cancelled 10/16/24 12:33
Alkaline Phosphatase Cancelled 10/16/24 12:33
Total Protein Cancelled 10/16/24 12:33
Albumin Cancelled 10/16/24 12:33
Physical Exam
-
GENERAL/NEURO: Awake, Alert, no distress
CHEST: Unlabored breathing on RA
ABDOMEN: Soft, Non-Tender, Non-Distended
Patient has a peters catheter: No
Patient has a central line: No
--- NOTE | 2024-10-19 09:43 | W.SUR.PREOP ---
Pre-Operative Surgical Note
-
I have examined this patient prior to the performance of the scheduled procedure.
The patient's condition is unchanged from the time of the current History and
Physical and the patient is able to undergo the scheduled procedure.
--- NOTE | 2024-10-19 10:06 | W.PN.HOSP.TC ---
Today's Communication/Plan
-
OR today
N.p.o.
Follow pathology report
Assessment / Plan
Assessment / Plan
89-year-old male with PMH of appendectomy, A-fib, diverticulitis, hypothyroidism, hyperlipidemia who presented to the hospital on 10/16 after syncopal episode witnessed by at home due to severe abdominal pain. Dilated loops of bowel in the RLQ
seen on CT scan, concerns for obstructing mass. Colonoscopy 10/18 (Dr. Soliman) showed near ileocecal valve obstruction by a mass, biopsied, pathology pending. Elevated CEA, liver lesions suspicious for mets.
Assessment and plan:
#Syncope-suspect vasovagal from abdominal pain.
-Patient has a history of vasovagal syncope in the past.
-Echo 10/08/2024 with normal EF 55 to 60%, biventricular size and systolic function normal.
-Sinus bradycardia on ECG is chronic and stable. He is not on any beta-lyudmila.
-Monitor on telemetry.
#Small bowel obstruction
-CT abdomen/pelvis 10/16/2024 reports multiple dilated distal small bowel loops that extends into ileocecal valve with no transition point, liver lesions likely metastatic.
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
-NPO.
-OR today for laparoscopic, possible open right hemicolectomy with possible liver biopsy.
-Appreciate colorectal surgery.
-Appreciate general surgery.
-Oncology following.
#Mild hyponatremia
-Suspect SIADH
-Continue hypertonic fluids while n.p.o.
#History of paroxysmal atrial fibrillation
-NSR on telemetry.
-Not on anticoagulants or rate controlling agents
#Hypothyroidism
-TSH 1.99.
-Continue Synthroid 88 mcg.
#Hyperlipidemia
-Continue home rosuvastatin.
#Diverticulosis
#Chronic RBBB
#Chronic back pain
-Takes Aleve outpatient.
DVT PPx: Lovenox
CODE STATUS: DNR
Data:
CT abdomen/pelvis 10/16/2024:
1. Several new small hypodense lesions within the liver. While nonspecific, they do raise concern for the presence of hepatic metastatic disease.
2. Multiple dilated distal small bowel loops which extend into the ileocecal valve. Findings are suspicious for small bowel obstruction, however no definitive transition point identified. The ileocecal valve appears patent. No discrete lesions
identified. Ileus is alternative consideration. Extensive colonic diverticulosis with moderate stool burden.
3. Moderately calcified, normal caliber abdominal aorta. No evidence for aneurysm.
Abdominal MRI 10/16/2024:
Probable diffuse small bowel ileus, partially visualized on this exam. Otherwise no convincing acute process in the abdomen.
There are several scattered small hepatic lesions suspicious for metastases.
Colonoscopy 10/18/2024:
Findings:
An ulcerated partially obstructing mass was found at the ileocecal
valve. No bleeding was present. Biopsies were taken with a cold forceps
for histology. Difficult to biopsy due to angulation.
Multiple large-mouthed diverticula were found in the entire colon.
Elongated, tortuous colon.
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
ileocecal valve. Biopsied.
- Diverticulosis in the entire examined colon.
Anticipated Discharge: > 48 hours
Subjective/Interval History
-
Date of Service: October 19, 2024
Objective Data
-
Labs:
Laboratory Results
10/19/24
07:39
WBC 4.5 L
Hgb 12.5 L
Hct 35.4 L
Plt Count 182
Sodium 134 L
Potassium 4.0
Chloride 102
Carbon Dioxide 24
BUN 5 L
Creatinine 0.7
Glucose 111 H
Calcium 9.4
Vital Signs:
Vital Signs
Temp Pulse Resp BP Pulse Ox
97.6 F 61 17 142/72 98
10/19/24 07:42 10/19/24 07:42 10/19/24 07:42 10/19/24 07:42 10/19/24 07:42
I&O
10/18/24 10/19/24 10/20/24
06:59 06:59 06:59
Intake Total 3410 / 3410 900 / 900
Output Total 1450 / 1450 1800 / 1800 350 / 350
Balance 1960 / 1960 -900 / -900 -350 / -350
Review of Systems
-
History Source: Patient
All other systems: Reviewed and negative
Physical Exam
-
General: Well Developed, No Apparent Distress and Comfortable
Respiratory: Clear to Auscultation; Negative Wheezes, Rales or Crackles
Cardiac: Regular Rhythm and S1/S2; Negative Murmur or Rub
GI: Soft, Nontender, Nondistended and Normal Bowel Sounds
Musculoskeletal: No Clubbing
Skin: Warm and Dry; Negative Rash
Neuro: Awake and AO x 3
Psych: Calm
Data Reviewed
-
CT Scan: Image personally visualized and interpreted, Report Reviewed by me and Discussed with Physician
MRI: Report Reviewed by me and Discussed with Physician
Labs: Labs Reviewed by me and Discussed with Physician
Old Records: Reviewed
--- NOTE | 2024-10-19 10:46 | W.PN.UPDATE ---
Update Note
Progress Note Update
I saw and evaluated the patient. I reviewed the resident�s note and agree with findings and plan as documented in the resident�s note.
Denies abd pain.
Gen: NAD, AAOx3.
Eyes: EOMI, PERRLA, no scleral icterus.
Neck: supple.
CV: RRR, +S1/S2, no m/r/g.
Resp: CTAB, no rales, wheezes, or rhonchi.
Abd: +BS, soft, NT, ND
Skin: No rashes.
Neuro: CN 2-12 intact, non-focal.
Psych: Normal mood and affect.
CT A/P: small new hypodense lesions in the liver. Multiple dilated small bowel loops extending into the ileocecal valve suspicious for small bowel obstruction with no transition point. Ileocecal valve patent constipation. Moderate calcified
normal caliber aorta
MRI abd: Probable diffuse small bowel ileus, partially visualized on this exam. Otherwise no convincing acute process in the abdomen. There are several scattered small hepatic lesions suspicious for metastases.
New small hypodense lesions within the liver:
-with SB ileus
-colonoscopy 10/18/24 with near obstructing mass at the ileocecal valve, biopsies pending
-AFP normal and CEA borderline elevated
-surgery/ONC following
-for laparoscopic, possible open right hemicolectomy with possible liver biopsy in the OR today
-NPO/IVFs
Syncope:
-likely vasovagal and due to abdominal pain
-EKG SB
-seen by cards
-Echo 10/08/24: normal BiV sz/fxn, EF 55-60%.
Other problems:
Mild hyponatremia, likely SIADH
PAF: Not on AC or rate controlling agents
Hypothyroidism: continue Synthroid
Hyperlipidemia: continue statin
Chronic RBBB
Chronic back pain/neuropathy/scoliosis/DJD/arthritis
DNR/Lovenox
[2024-10-19] MEDS: D5/0.9% SODIUM CHLORIDE 1000 IV (13:12)
--- NOTE | 2024-10-19 13:54 | W.PN.ONC2 ---
Today's Communication / Plan
-
.
Impression
Impression
colonoscopy 10/18/24 with near obstructing mass at the ileocecal valve, biopsies pending
Liver hypodensities
Syncope
Plan
Plan
laparoscopic, possible open right hemicolectomy with possible liver biopsy
CEA of 13.6 is elevated but non-specific.
Anticipate outpt PET to eval liver lesions once tissue dx available.
No anemia or uncontrolled pain.
Optimize PS, PT/OT
at bedside provided updates and questions answered
Subjective/Objective
Subjective
no new complaints
Vital Signs:
Vital Signs
Temp Pulse Resp BP Pulse Ox
97.6 F 61 17 142/72 96
10/19/24 07:42 10/19/24 07:42 10/19/24 07:42 10/19/24 07:42 10/19/24 11:37
Lab Results:
Laboratory Data
WBC 4.5 10^3/uL (4.8-10.8) L 10/19/24 07:39
Hgb 12.5 g/dL (13.0-18.0) L 10/19/24 07:39
Plt Count 182 10^3/uL (130-400) 10/19/24 07:39
eGFR > 60.00 10/19/24 07:39
--- NOTE | 2024-10-19 18:44 | W.IMMPOSTOP ---
Surgical Immed Post Op Note
-
Primary Surgeon: Mark Burris MD
Assisting Surgeon: None
Pre-op Diagnosis: Ileocecal mass, small bowel obstruction
Post-op Diagnosis: Same
Procedure Performed: Laparoscopic right hemicolectomy
Anesthesia Type: General
Specimen / Cultures: Right hemicolectomy
Estimated Blood Loss: 23 cc
Complications: None
Operative Findings: Infraumbilical open Denny entry. Diagnostic laparoscopy performed, no intraoperative metastases identified. The entire visible liver was carefully examined and no obvious masses were identified thus no biopsy was performed. A
standard laparoscopic medial to lateral dissection with high ligation of the ileocolic pedicle was performed with mobilization of the hepatic flexure and medialization of the right colon mesentery. A periumbilical extraction site was made and an
extracorporeal ileocolic [id number] functional end-to-end stapled anastomosis was fashion using 2 fires of an 80 VENESSA purple using a Janusz technique. The anastomosis was returned to the abdomen and pneumoperitoneum was reestablished. The
anastomosis looked good and laid in its correct orientation. Hemostasis was achieved and the ports were removed under direct visualization. The periumbilical site was closed with 0 PDS suture x 2. His OG tube was removed and his Lund catheter
was left in place.
POST OP PLAN:
Imaging: None
Labs: Routine AM
Diet: Okay for sips of clears, will plan for clears tomorrow
Analgesia: Dilaudid 0.5mg q2h PRN. Unable to use Tylenol due to allergy and no Toradol as there was some mild generalized ooziness during the case.
Neuro/vascular checks: q4h
AC/AP: Hold Therapeutic AC, Ok for DVT PPx
Activity: Ad Osiris
Wound/Incisions/Drains: Routine
Abx: None
Dispo: RNF
[2024-10-19] MEDS: DILAUDID 0.25 MG IV (19:26)
[2024-10-19] MEDS: DEMEROL 12.5 MG IV ×2 (19:26→19:35)
--- NOTE | 2024-10-19 20:30 | PTCARENOTE ---
PT arrived to floor from PACU post Laparoscopic right hemicolectomy. PT drowsy but arousable to voice, AAOx3. POX 96% on 2 LO2 NC. Midline dressing intact with scant traced drainage, 3 lap sites with surg glue ope to air assessed. Pt complaining of
9/10 pain. PRN pain medication administered as ordered. Right wrist int infusing IVF as ordered. Knee high seq in place. Call baker in reach. Will monitor.
[2024-10-19] MEDS: DILAUDID 0.5 MG IV (20:36)
[2024-10-19] MEDS: MELATONIN 3 MG PO (22:02)
[2024-10-19] MEDS: CRESTOR 10 MG PO (22:02)
[2024-10-20] VITALS (9 sets, daily range): BP systolic 98–134; BP diastolic 48–79
[2024-10-20] MEDS: DILAUDID 0.5 MG IV (02:27)
--- NOTE | 2024-10-20 07:28 | W.PN.GS2 ---
Today's Communication / Plan
-
Clears. Will not advance until return of bowel function
Out of bed and ambulate
Lovenox, SCDs
IV fluids to 75 cc an hour
DC Peters
Assessment / Plan
-
This is an 89-year-old male with a history of remote open appendectomy, A-fib, skin cancer, hyperlipidemia, hypothyroidism, diverticulitis who presented to our hospital 10/16/2024 following a syncopal episode at home and awoke with severe abdominal
pain. CT abdomen pelvis showed multiple dilated loops of bowel in the right lower quadrant extending to the ileocecal valve with concern for a mass in this area. Dr. Soliman performed a colonoscopy on 10/18/2024 which demonstrated a near obstructing
mass at the ileocecal valve, biopsies pending. CEA is elevated. There were also liver lesions suspicious metastatic spread.
POD #1 laparoscopic right hemicolectomy. Doing well, expected postoperative course
Clears. Will not advance until return of bowel function
Out of bed and ambulate
Lovenox, SCDs
IV fluids to 75 cc an hour
DC Peters
Time Spent
Total Time Spent with Patient (in minutes): 15
Subjective Data
-
Date of Service: October 20, 2024
Interval Events:
No acute events overnight. Slept well. Pain Controlled. Denies Nausea/Vomiting, -bowel function.
Objective Data
-
Intake and Output
10/19/24 10/20/24 10/21/24
06:59 06:59 06:59
Intake Total 900 / 900 800 / 800
Output Total 1800 / 1800 1650 / 1650
Balance -900 / -900 -850 / -850
Intake:
IV fluids (Total) 900 / 900 800 / 800
Normosol 200 / 200
Output:
Urine, Peters 950 / 950
Urine, Voided 1800 / 1800 700 / 700
Other:
Number of approximated MODERATE 2
amounts of urine
Vital Signs
Temp Pulse Resp BP Pulse Ox
97.5 F 91 16 128/75 95
10/20/24 03:00 10/20/24 03:00 10/20/24 03:00 10/20/24 03:00 10/20/24 03:00
Calcium 9.4 mg/dl (8.4-10.2) 10/19/24 07:39
Magnesium 2.1 mg/dl (1.6-2.3) 10/16/24 09:53
Total Bilirubin Cancelled 10/16/24 12:33
Direct Bilirubin Cancelled 10/16/24 12:33
AST Cancelled 10/16/24 12:33
ALT Cancelled 10/16/24 12:33
Alkaline Phosphatase Cancelled 10/16/24 12:33
Total Protein Cancelled 10/16/24 12:33
Albumin Cancelled 10/16/24 12:33
Physical Exam
-
GENERAL/NEURO: Awake, Alert, no distress
CHEST: Unlabored breathing on RA
ABDOMEN: Soft, appropriately tender, mildly distended
Patient has a peters catheter: Yes
Patient has a central line: No
[2024-10-20] MEDS: VITAMIN D3 (cholecalciferol) 100 MCG PO (07:57)
[2024-10-20] MEDS: VITAMIN B-12 1000 MCG PO (07:57)
[2024-10-20] MEDS: CLARITIN 10 MG PO (07:57)
[2024-10-20] MEDS: SYNTHROID 88 MCG PO (07:57)
[2024-10-20 08:12] LABS: Hemoglobin 13.3 g/dL (13.0-18.0); Mean Corpuscular Hgb 32.1 pg (27.0-31.0); Mean Corpuscular Volume 91.8 fL (80.0-94.0); Mean Platelet Volume 11.5 fL (7.4-10.4); Platelet Count 162 10^3/uL (130-400); Red Blood Cell Count 4.14 10^6/uL (4.70-6.10); Red Cell Dist. Width 12.4 % (11.5-14.5); White Blood Cell Count 8.9 10^3/uL (4.8-10.8)
--- NOTE | 2024-10-20 08:18 | W.PN.ONC2 ---
Today's Communication / Plan
-
.
Impression
Impression
colonoscopy 10/18/24 with near obstructing mass at the ileocecal valve, biopsies pending
Laparoscopic right hemicolectomy 10/19/2024, no liver bx performed, follow for surgical path
Liver hypodensities
Syncope
Plan
Plan
follow for path
CEA of 13.6 is elevated but non-specific.
Anticipate outpt PET to eval liver lesions once tissue dx available.
No anemia or uncontrolled pain.
Optimize PS, PT/OT
Subjective/Objective
Subjective
post operative pain
Vital Signs:
Vital Signs
Temp Pulse Resp BP Pulse Ox
98.4 F 83 17 128/62 97
10/20/24 07:54 10/20/24 07:54 10/20/24 07:54 10/20/24 07:54 10/20/24 07:54
Lab Results:
Laboratory Data
WBC 8.9 10^3/uL (4.8-10.8) 10/20/24 07:19
Hgb 13.3 g/dL (13.0-18.0) 10/20/24 07:19
Plt Count 162 10^3/uL (130-400) 10/20/24 07:19
eGFR > 60.00 10/19/24 07:39
--- NOTE | 2024-10-20 08:51 | W.PN.UPDATE ---
Update Note
Progress Note Update
I saw and evaluated the patient. I reviewed the resident�s note and agree with findings and plan as documented in the resident�s note.
Reports mild abdominal pain.
Gen: NAD, AAOx3.
Eyes: EOMI, PERRLA, no scleral icterus.
Neck: supple.
CV: Remains RRR, +S1/S2, no m/r/g.
Resp: Remains CTAB, no rales, wheezes, or rhonchi.
Abd: +BS, soft, NT to light palpation., ND
Skin: No rashes.
Neuro: CN 2-12 intact, non-focal.
Psych: Normal mood and affect.
CT A/P: small new hypodense lesions in the liver. Multiple dilated small bowel loops extending into the ileocecal valve suspicious for small bowel obstruction with no transition point. Ileocecal valve patent constipation. Moderate calcified
normal caliber aorta
MRI abd: Probable diffuse small bowel ileus, partially visualized on this exam. Otherwise no convincing acute process in the abdomen. There are several scattered small hepatic lesions suspicious for metastases.
New small hypodense lesions within the liver:
-with SB ileus
-colonoscopy 10/18/24 with near obstructing mass at the ileocecal valve, biopsies pending
-AFP normal and CEA elevated but nonspecific
-surgery/ONC following
-s/p Laparoscopic right hemicolectomy on 10/19/24
-clears/IVFs
-follow path
Syncope:
-likely vasovagal and due to abdominal pain
-EKG SB
-seen by cards
-Echo 10/08/24: normal BiV sz/fxn, EF 55-60%.
Other problems:
Mild hyponatremia, likely SIADH
PAF: Not on AC or rate controlling agents
Hypothyroidism: continue Synthroid
Hyperlipidemia: continue statin
Chronic RBBB
Chronic back pain/neuropathy/scoliosis/DJD/arthritis
DNR/Lovenox
[2024-10-20 08:58] LABS: Blood Urea Nitrogen 9 mg/dl (9-20); Calcium 9.3 mg/dl (8.4-10.2); Carbon Dioxide 22 mmol/L (22-30); Chloride 99 mmol/L (98-107); Estimated Creatinine Clearance 74 ml/min; Glucose 140 mg/dl (70-99); Sodium 133 mmol/L (135-145); eGFR > 60.00
--- NOTE | 2024-10-20 09:54 | OR.RPT ---
Operative Report
Operative Report
Patient Name: Deng Gonzalez
: 1935
Date of Operation: 10/19/2024
Preoperative Diagnosis: Ileocecal mass, small bowel obstruction
Postoperative Diagnosis: Same
Procedure(s):
Laparoscopic right Shabbir-Colectomy
Surgeon(s):
Dr. Mark Burris
Coverstitch Machine Operator(s):
KENNY Wagner
Anesthesia: General
Estimated Blood Loss: 23 cc
Urine Output: See Anesthesia Records
Drains/Lines/Implants: None
Specimens:
Right hemicolectomy
Indication for surgery: This is an 89-year-old male who presented to our hospital last week with syncope followed by abdominal pain. Workup demonstrated a small bowel obstruction from a terminal ileal mass. He underwent colonoscopy which confirmed
partially obstructing tumor at the ileocecal valve concerning for a colorectal cancer. After thorough discussion of risk benefits and alternatives the patient elected to pursue surgical resection of the mass
Operative Findings: Infraumbilical open Denny entry. Diagnostic laparoscopy performed, no intraoperative metastases identified. The entire visible liver was carefully examined and no obvious masses were identified thus no biopsy was performed. A
standard laparoscopic medial to lateral dissection with high ligation of the ileocolic pedicle was performed with mobilization of the hepatic flexure and medialization of the right colon mesentery. A periumbilical extraction site was made and an
extracorporeal ileocolic [id number] functional end-to-end stapled anastomosis was fashion using 2 fires of an 80 VENESSA purple using a Janusz technique. The anastomosis was returned to the abdomen and pneumoperitoneum was reestablished. The
anastomosis looked good and laid in its correct orientation. Hemostasis was achieved and the ports were removed under direct visualization. The periumbilical site was closed with 0 PDS suture x 2. His OG tube was removed and his Lund catheter
was left in place.
Details of the operation:
After induction of general anesthesia, the patient was clipped, prepped and draped in the supine position, with the left arm tucked. An OG tube and Lund catheter were placed. A team timeout was performed confirming administration of DVT
prophylaxis, IV antibiotics and SCDs. Abdominal access was obtained with an 12mm infra-umbilical Denny Entry. After confirming no injury on entrance, two additional 5mm ports were placed in the suprapubic area just off midline and in the left
lower quadrant. An additional 5 mm port was placed in the epigastric area the patient was placed in Trendelenberg with the right slightly up. The ileocolic pedicle was identified, and the peritoneum scored. We then began a medial to lateral
dissection of the right colonic mesentery of the right colonic mesentery, identifying the duodenum medially and Gerota's fascia laterally.. After this, we transitioned to the transverse colon and began taking down the attachments to the gallbladder
and the liver. We then took down the lateral attachments along the white line of Toldt all the way down to some scar tissue near the right lower quadrant at the site of his previous appendectomy. The right ureter was identified and preserved
throughout the case. The attachments of the small bowel mesentery were then freed off the retroperitoneum such that the entire right colon could be medialized with complete exposure of the duodenum. At this point the ileocolic pedicle was divided
using the laparoscopic bipolar energy device. Satisfied with our mobilization, pneumoperitoneum was evacuated and our periumbilical incision was extended cephalad for a few centimeters. A medium Wayne wound retractor was placed and the specimen
was extracorporealized. Palpable mass was readily identified at the terminal ileum. A distance of 6 cm proximal and distal were marked and the intervening mesentery was divided. A [id number], functional end-to-end ileocolic stapled anastomosis
was created using 2 fires of the VENESSA 80 purple load. The staple line inside was checked to ensure no bleeding had occurred, before the enterotomies were closed transversely. The specimen was passed off the field. 2 crotch stitches were placed in
the transverse staple line was imbricated using interrupted 3-0 silk pops. Outer gloves were changed, and the dirty instruments/towels were passed off the field. The mesenteric defect was wide and left open as the anastomosis was returned to the
abdomen along with a 4 x 4 Ray-Angel. Pneumoperitoneum was then reestablished and both the correct orientation of the bowel and hemostasis were confirmed. The 5 mm ports were removed under direct visualization. Pneumoperitoneum was once again
evacuated and the Wayne wound retractor along with the Ray-Angel were removed. The periumbilical incision was then closed using 0 PDS suture anchored at both apices and run towards the middle and tied together. This incision was then closed with
interrupted 3-0 Vicryl subdermals. The 5 mm port incisions were closed with 4-0 Monocryl followed by Dermabond. A small Aquacel dressing was placed over the midline wound. All counts were correct x2.
I was the attending physician and performed the procedure with assistance from the PHARMACY INTERN above. I was present for all portions of the case.
Mark Burris MD
--- NOTE | 2024-10-20 11:11 | W.PN.HOSP.TC ---
Today's Communication/Plan
-
Follow BMP
Continue clears
Follow pathology
Assessment / Plan
Assessment / Plan
89-year-old male with PMH of appendectomy, A-fib, diverticulitis, hypothyroidism, hyperlipidemia who presented to the hospital on 10/16 after syncopal episode witnessed by at home due to severe abdominal pain. Dilated loops of bowel in the RLQ
seen on CT scan, concerns for obstructing mass. Colonoscopy 10/18 (Dr. Soliman) showed near ileocecal valve obstruction by a mass, biopsied, pathology pending. Elevated CEA, liver lesions suspicious for mets.
Assessment and plan:
#Small bowel obstruction
#New small hypodense lesion within the liver
-S/p laparoscopic right hemicolectomy POD #1. Patient doing well.
-CT abdomen/pelvis 10/16/2024 reports multiple dilated distal small bowel loops that extends into ileocecal valve with no transition point, liver lesions likely metastatic.
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
-Continue clears and IV fluid.
-Follow pathology.
-Surgery/oncology following.
-PT/OT
#Syncope-suspect vasovagal from abdominal pain.
-Patient has a history of vasovagal syncope in the past.
-Echo 10/08/2024 with normal EF 55 to 60%, biventricular size and systolic function normal.
-Sinus bradycardia on ECG is chronic and stable. He is not on any beta-lyudmila.
#Mild hyponatremia
-Suspect SIADH
-Follow BMP
#History of paroxysmal atrial fibrillation
-NSR on telemetry.
-Not on anticoagulants or rate controlling agents
#Hypothyroidism
-TSH 1.99.
-Continue Synthroid 88 mcg.
#Hyperlipidemia
-Continue home rosuvastatin.
#Diverticulosis
#Chronic RBBB
#Chronic back pain
-Takes Aleve outpatient.
DVT PPx: Еленаnox
CODE STATUS: DNR
Data:
CT abdomen/pelvis 10/16/2024:
1. Several new small hypodense lesions within the liver. While nonspecific, they do raise concern for the presence of hepatic metastatic disease.
2. Multiple dilated distal small bowel loops which extend into the ileocecal valve. Findings are suspicious for small bowel obstruction, however no definitive transition point identified. The ileocecal valve appears patent. No discrete lesions
identified. Ileus is alternative consideration. Extensive colonic diverticulosis with moderate stool burden.
3. Moderately calcified, normal caliber abdominal aorta. No evidence for aneurysm.
Abdominal MRI 10/16/2024:
Probable diffuse small bowel ileus, partially visualized on this exam. Otherwise no convincing acute process in the abdomen.
There are several scattered small hepatic lesions suspicious for metastases.
Colonoscopy 10/18/2024:
Findings:
An ulcerated partially obstructing mass was found at the ileocecal
valve. No bleeding was present. Biopsies were taken with a cold forceps
for histology. Difficult to biopsy due to angulation.
Multiple large-mouthed diverticula were found in the entire colon.
Elongated, tortuous colon.
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
ileocecal valve. Biopsied.
- Diverticulosis in the entire examined colon.
Anticipated Discharge: 24 - 48 hours
Subjective/Interval History
-
Date of Service: October 20, 2024
I saw and evaluated patient. Patient sitting in bed in no acute distress. He reports mild pain around surgery sites, but no fevers or chills. Denies headaches, nausea, vomiting, chest pain or shortness of breath. Denies BM or passing gas. Does
not feel bloated. He otherwise feels well.
Objective Data
-
Labs:
Laboratory Results
10/20/24
07:19
WBC 8.9
Hgb 13.3
Hct 38.0 L
Plt Count 162
Sodium 133 L
Potassium 4.0
Chloride 99
Carbon Dioxide 22
BUN 9
Creatinine 0.7
Glucose 140 H
Calcium 9.3
Vital Signs:
Vital Signs
Temp Pulse Resp BP Pulse Ox
98.4 F 83 17 128/62 97
10/20/24 07:54 10/20/24 07:54 10/20/24 07:54 10/20/24 07:54 10/20/24 07:54
I&O
10/19/24 10/20/24 10/21/24
06:59 06:59 06:59
Intake Total 900 / 900 800 / 800
Output Total 1800 / 1800 1650 / 1650
Balance -900 / -900 -850 / -850
Review of Systems
-
History Source: Patient
All other systems: Reviewed and negative
Physical Exam
-
General: Well Developed, No Apparent Distress and Comfortable
HEENT: Normocephalic and Atraumatic
Respiratory: Clear to Auscultation; Negative Wheezes, Rales or Crackles
Cardiac: Regular Rhythm and S1/S2; Negative Murmur or Rub
GI: Soft, Nontender, Nondistended and Normal Bowel Sounds
Musculoskeletal: No Clubbing, No Cyanosis and No Edema
Skin: Warm, Dry and Other (No erythema around surgery sites); Negative Rash
Neuro: Awake and AO x 3
Psych: Calm
Data Reviewed
-
Labs: Labs Reviewed by me and Discussed with Physician
[2024-10-20] MEDS: ULTRAM 50 MG PO ×2 (12:40→18:33)
[2024-10-20] MEDS: D5/0.9% SODIUM CHLORIDE 1000 IV (13:56)
[2024-10-20] MEDS: CRESTOR 10 MG PO (18:05)
[2024-10-20] MEDS: LOVENOX 40 MG SC (18:05)
[2024-10-20] MEDS: MYLICON 80 MG PO (21:14)
[2024-10-20] MEDS: MELATONIN 3 MG PO (21:18)
[2024-10-21] MEDS: ULTRAM 50 MG PO ×2 (00:38→08:11)
[2024-10-21] MEDS: DILAUDID 0.5 MG IV ×2 (01:36→05:39)
[2024-10-21] MEDS: D5/0.9% SODIUM CHLORIDE 1000 IV ×2 (01:36→21:03)
[2024-10-21] MEDS: SYNTHROID 88 MCG PO (05:33)
[2024-10-21 07:00] VITALS: BP 131/82
--- NOTE | 2024-10-21 07:10 | W.PN.HOSP.TC ---
Today's Communication/Plan
-
Pain control
Follow pathology
Follow BMP
Continue clears
Assessment / Plan
Assessment / Plan
89-year-old male with PMH of appendectomy, A-fib, diverticulitis, hypothyroidism, hyperlipidemia who presented to the hospital on 10/16 after syncopal episode witnessed by at home due to severe abdominal pain. Dilated loops of bowel in the RLQ
seen on CT scan, concerns for obstructing mass. Colonoscopy 10/18 (Dr. Soliman) showed near ileocecal valve obstruction by a mass, biopsied, pathology pending. Elevated CEA, liver lesions suspicious for mets.
Assessment and plan:
#Small bowel ileus
#New small hypodense lesion within the liver
-S/p laparoscopic right hemicolectomy POD #2. Patient feeling better, complains of pain.
-CEA elevated, AFP WNL.
-Follow pathology.
-Pain control.
-Incentive spirometry.
-Continue clears and IV fluid until bowel function returns.
-Follow pathology.
-Surgery/oncology appreciated.
-PT/OT
#Syncope-suspect vasovagal from abdominal pain.
-EKG with sinus bradycardia which is chronic and stable. He is not on any beta-lyudmila. History of possible syncope in the past.
-Echo 10/08/2024 with normal EF 55 to 60%, biventricular size and systolic function normal.
-Outpatient cardiology follow-up.
#Mild hyponatremia
-Suspect SIADH
-Follow BMP
#History of paroxysmal atrial fibrillation
-NSR on telemetry.
-Not on anticoagulants or rate controlling agents
#Hypothyroidism
-TSH 1.99.
-Continue Synthroid 88 mcg.
#Hyperlipidemia
-Continue home rosuvastatin.
#Diverticulosis
#Chronic RBBB
#Chronic back pain
-Takes Aleve outpatient.
DVT PPx: Lovenox
CODE STATUS: DNR
Data:
CT abdomen/pelvis 10/16/2024:
1. Several new small hypodense lesions within the liver. While nonspecific, they do raise concern for the presence of hepatic metastatic disease.
2. Multiple dilated distal small bowel loops which extend into the ileocecal valve. Findings are suspicious for small bowel obstruction, however no definitive transition point identified. The ileocecal valve appears patent. No discrete lesions
identified. Ileus is alternative consideration. Extensive colonic diverticulosis with moderate stool burden.
3. Moderately calcified, normal caliber abdominal aorta. No evidence for aneurysm.
Abdominal MRI 10/16/2024:
Probable diffuse small bowel ileus, partially visualized on this exam. Otherwise no convincing acute process in the abdomen.
There are several scattered small hepatic lesions suspicious for metastases.
Colonoscopy 10/18/2024:
Findings:
An ulcerated partially obstructing mass was found at the ileocecal
valve. No bleeding was present. Biopsies were taken with a cold forceps
for histology. Difficult to biopsy due to angulation.
Multiple large-mouthed diverticula were found in the entire colon.
Elongated, tortuous colon.
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
ileocecal valve. Biopsied.
- Diverticulosis in the entire examined colon.
Anticipated Discharge: > 48 hours
Subjective/Interval History
-
Date of Service: October 21, 2024
I saw and evaluated patient. Patient complains of RUQ pain rated 8/10, does not radiate. He has not passed gas since surgery but states that he urinates okay. He denies chest pain, fever, chills, nausea, vomiting.
Objective Data
-
Labs:
Lab
10/21/24 07:13
10/21/24 07:13
oratory Results
Vital Signs:
Vital Signs
Temp Pulse Resp BP Pulse Ox
97.9 F 83 18 134/79 91
10/20/24 23:41 10/20/24 23:41 10/20/24 23:41 10/20/24 23:41 10/20/24 23:41
I&O
10/20/24 10/21/24 10/22/24
06:59 06:59 06:59
Intake Total 800 / 800 1859
Output Total 0 / 1649
Balance -850 / -850 1859
Review of Systems
-
History Source: Patient
All other systems: Not reviewed unless documented
Respiratory: Reports No Symptoms and Cough
Cardiac: Reports No Symptoms; Denies Chest Pain or Diaphoresis
Abdomen/GI: Reports Abdominal Pain (RLQ); Denies Nausea or Vomiting
Genitourinary: Reports No Symptoms
Musculoskeletal: Reports No Symptoms
Skin: Reports Rash
Neuro: Reports No Symptoms
Physical Exam
-
General: Well Developed, No Apparent Distress and Comfortable
HEENT: Normocephalic and Atraumatic
Respiratory: Clear to Auscultation; Negative Wheezes, Rales or Crackles
Cardiac: Regular Rhythm and S1/S2; Negative Murmur or Rub
GI: Soft, Nondistended, Normal Bowel Sounds, Tender (RLQ) and Distended (Mildly)
Musculoskeletal: No Clubbing, No Cyanosis and No Edema
Skin: Warm, Dry, Rash (Bilateral hands) and Other (No erythema around surgery sites)
Neuro: Awake and AO x 3
Psych: Calm
Data Reviewed
-
Labs: Labs Reviewed by me and Discussed with Physician
[2024-10-21 07:22] LABS: Hematocrit 34.7 % (39.0-52.0); Mean Corp Hgb Conc. 34.6 g/dL (33.0-37.0); Mean Corpuscular Hgb 31.6 pg (27.0-31.0); Mean Corpuscular Volume 91.3 fL (80.0-94.0); Mean Platelet Volume 9.7 fL (7.4-10.4); Platelet Count 167 10^3/uL (130-400); Red Cell Dist. Width 12.6 % (11.5-14.5); White Blood Cell Count 6.6 10^3/uL (4.8-10.8)
[2024-10-21 07:48] LABS: Blood Urea Nitrogen 8 mg/dl (9-20); Calcium 8.5 mg/dl (8.4-10.2); Carbon Dioxide 27 mmol/L (22-30); Chloride 100 mmol/L (98-107); Estimated Creatinine Clearance 74 ml/min; Glucose 120 mg/dl (70-99); Potassium 3.5 mmol/L (3.5-5.1); Sodium 130 mmol/L (135-145); eGFR > 60.00
--- NOTE | 2024-10-21 08:00 | W.PN.UPDATE ---
Update Note
Progress Note Update
I saw and evaluated the patient. I reviewed the resident�s note and agree with findings and plan as documented in the resident�s note.
Reports abdominal pain improved from yesterday. Denies flatus or BM.
Gen: NAD, AAOx3.
Eyes: EOMI, PERRLA, no scleral icterus.
Neck: supple.
CV: continues to remain RRR, +S1/S2, no m/r/g.
Resp: continues to remain CTAB, no rales, wheezes, or rhonchi.
Abd: +BS, soft, diffuse TTP, ND
Skin: No rashes.
Neuro: CN 2-12 intact, non-focal.
Psych: Normal mood and affect.
CT A/P: small new hypodense lesions in the liver. Multiple dilated small bowel loops extending into the ileocecal valve suspicious for small bowel obstruction with no transition point. Ileocecal valve patent constipation. Moderate calcified
normal caliber aorta
MRI abd: Probable diffuse small bowel ileus, partially visualized on this exam. Otherwise no convincing acute process in the abdomen. There are several scattered small hepatic lesions suspicious for metastases.
New small hypodense lesions within the liver:
-with SB ileus
-colonoscopy 10/18/24 with near obstructing mass at the ileocecal valve, biopsies pending
-AFP normal and CEA elevated but nonspecific
-surgery/ONC following
-s/p Laparoscopic right hemicolectomy on 10/19/24
-clears/IVFs
-follow path
Syncope:
-likely vasovagal and due to abdominal pain
-EKG SB
-seen by cards
-Echo 10/08/24: normal BiV sz/fxn, EF 55-60%.
Other problems:
Mild hyponatremia, likely SIADH
PAF: Not on AC or rate controlling agents
Hypothyroidism: continue Synthroid
Hyperlipidemia: continue statin
Chronic RBBB
Chronic back pain/neuropathy/scoliosis/DJD/arthritis
DNR/Fátima
[2024-10-21] MEDS: VITAMIN D3 (cholecalciferol) 100 MCG PO (08:09)
[2024-10-21] MEDS: VITAMIN B-12 1000 MCG PO (08:10)
[2024-10-21] MEDS: CLARITIN 10 MG PO (08:10)
--- NOTE | 2024-10-21 09:16 | W.PN.GS2 ---
Today's Communication / Plan
-
Out of bed and ambulate
Wean O2
Assessment / Plan
-
This is an 89-year-old male with a history of remote open appendectomy, A-fib, skin cancer, hyperlipidemia, hypothyroidism, diverticulitis who presented to our hospital 10/16/2024 following a syncopal episode at home and awoke with severe abdominal
pain. CT abdomen pelvis showed multiple dilated loops of bowel in the right lower quadrant extending to the ileocecal valve with concern for a mass in this area. Dr. Soliman performed a colonoscopy on 10/18/2024 which demonstrated a near obstructing
mass at the ileocecal valve, biopsies pending. CEA is elevated. There were also liver lesions suspicious metastatic spread.
POD #2 laparoscopic right hemicolectomy. Doing well, expected postoperative course
Incentive spirometry, wean O2 as able
Clears. Will not advance until return of bowel function
Out of bed and ambulate
Lovenox, SCDs
IV fluids to 75 cc an hour
Time Spent
Total Time Spent with Patient (in minutes): 20
Subjective Data
-
Date of Service: October 21, 2024
Interval Events:
No acute events overnight. Pain slightly worse. Denies Nausea/Vomiting, still no bowel function.
Objective Data
-
Intake and Output
10/20/24 10/21/24 10/22/24
06:59 06:59 06:59
Intake Total 800 / 800 1859 / 1860
Output Total 1650 / 1650
Balance -850 / -850 1859
Intake:
Oral fluids 1260 / 1260
IV fluids (Total) 800 / 800 600 / 600
Normosol 200 / 200
Output:
Urine, Peters 950 / 950
Urine, Voided 700 / 700
Other:
Number of approximated MODERATE 2 2
amounts of urine
Number of approximated LARGE 3
amounts of urine
Vital Signs
Temp Pulse Resp BP Pulse Ox
97.8 F 105 18 131/82 93
10/21/24 07:00 10/21/24 07:00 10/21/24 07:00 10/21/24 07:00 10/21/24 07:00
Lab Results
10/21/24 07:13
10/21/24 07:13
Calcium 8.5 mg/dl (8.4-10.2) 10/21/24 07:13
Magnesium 2.1 mg/dl (1.6-2.3) 10/16/24 09:53
Total Bilirubin Cancelled 10/16/24 12:33
Direct Bilirubin Cancelled 10/16/24 12:33
AST Cancelled 10/16/24 12:33
ALT Cancelled 10/16/24 12:33
Alkaline Phosphatase Cancelled 10/16/24 12:33
Total Protein Cancelled 10/16/24 12:33
Albumin Cancelled 10/16/24 12:33
Physical Exam
-
GENERAL/NEURO: Awake, Alert, no distress
CHEST: Unlabored breathing on nasal cannula
ABDOMEN: Soft, appropriately tender, mildly distended
Patient has a peters catheter: No
Patient has a central line: No
--- NOTE | 2024-10-21 09:59 | CM ---
sp Lap right mere colectomy .
Clear liquids started yesterday.
Weaned off oxygen ..
PLAN Home no needs
[2024-10-21 11:20] VITALS: BP 144/76; PULSE 85; O2SAT 98
[2024-10-21 13:04] VITALS: BP 144/76; PULSE 85; O2SAT 98
[2024-10-21 15:00] VITALS: BP 135/78
[2024-10-21] MEDS: CRESTOR 10 MG PO (17:20)
[2024-10-21] MEDS: LOVENOX 40 MG SC (17:21)
[2024-10-21] MEDS: MYLICON 80 MG PO (19:27)
[2024-10-21] MEDS: MELATONIN 3 MG PO (21:03)
[2024-10-21 23:14] VITALS: BP 125/81
[2024-10-22] MEDS: SYNTHROID 88 MCG PO (05:56)
[2024-10-22 06:34] LABS: Hemoglobin 13.2 g/dL (13.0-18.0); Mean Corp Hgb Conc. 35.7 g/dL (33.0-37.0); Mean Corpuscular Hgb 32.4 pg (27.0-31.0); Mean Corpuscular Volume 90.9 fL (80.0-94.0); Mean Platelet Volume 11.2 fL (7.4-10.4); Platelet Count 190 10^3/uL (130-400); Red Blood Cell Count 4.07 10^6/uL (4.70-6.10); Red Cell Dist. Width 12.3 % (11.5-14.5); White Blood Cell Count 7.3 10^3/uL (4.8-10.8)
[2024-10-22 07:00] VITALS: BP 141/80
--- NOTE | 2024-10-22 07:12 | W.PN.GS2 ---
Today's Communication / Plan
-
Incentive spirometry
Okay for chewing gum
Clears. Okay for prune juice x 1, will not advance until further return of bowel function
Out of bed and ambulate
Lovenox, SCDs
IV fluids to 75 cc an hour
Assessment / Plan
-
This is an 89-year-old male with a history of remote open appendectomy, A-fib, skin cancer, hyperlipidemia, hypothyroidism, diverticulitis who presented to our hospital 10/16/2024 following a syncopal episode at home and awoke with severe abdominal
pain. CT abdomen pelvis showed multiple dilated loops of bowel in the right lower quadrant extending to the ileocecal valve with concern for a mass in this area. Dr. Soliman performed a colonoscopy on 10/18/2024 which demonstrated a near obstructing
mass at the ileocecal valve, biopsies pending. CEA is elevated. There were also liver lesions suspicious metastatic spread.
POD #3 laparoscopic right hemicolectomy. Doing well, expected postoperative ileus.
Incentive spirometry
Okay for chewing gum
Clears. Okay for prune juice x 1, will not advance until further return of bowel function
Out of bed and ambulate
Lovenox, SCDs
IV fluids to 75 cc an hour
Time Spent
Total Time Spent with Patient (in minutes): 20
Subjective Data
-
Date of Service: October 22, 2024
Interval Events:
No acute events overnight. Slept well. Pain Controlled. Denies Nausea/Vomiting, still no bowel function. Tolerating clears
Objective Data
-
Intake and Output
10/21/24 10/22/24 10/23/24
06:59 06:59 06:59
Intake Total 1859 / 1919
Output Total 1874
Balance 1859 45 / 45
Intake:
Oral fluids 1260 / 1260 1320 / 1320
IV fluids (Total) 600 / 600 600 / 600
Output:
Urine, Voided 1874 / 1874
Other:
Number of approximated MODERATE 2 2
amounts of urine
Number of approximated LARGE 3
amounts of urine
Vital Signs
Temp Pulse Resp BP Pulse Ox
98.2 F 94 18 125/81 92
10/21/24 23:14 10/21/24 23:14 10/21/24 23:14 10/21/24 23:14 10/21/24 23:14
Lab Results
10/22/24 06:06
10/21/24 07:13
Calcium 8.5 mg/dl (8.4-10.2) 10/21/24 07:13
Magnesium 2.1 mg/dl (1.6-2.3) 10/16/24 09:53
Total Bilirubin Cancelled 10/16/24 12:33
Direct Bilirubin Cancelled 10/16/24 12:33
AST Cancelled 10/16/24 12:33
ALT Cancelled 10/16/24 12:33
Alkaline Phosphatase Cancelled 10/16/24 12:33
Total Protein Cancelled 10/16/24 12:33
Albumin Cancelled 10/16/24 12:33
Physical Exam
-
GENERAL/NEURO: Awake, Alert, no distress
CHEST: Unlabored breathing on RA
ABDOMEN: Soft, appropriately tender, distended, incisions clean dry and intact
Patient has a peters catheter: No
Patient has a central line: No
--- NOTE | 2024-10-22 08:23 | W.PN.HOSP.TC ---
Today's Communication/Plan
-
OOB and ambulate
Continue IVF
Pain control
PT/OT
Assessment / Plan
Assessment / Plan
89-year-old male with PMH of appendectomy, A-fib, diverticulitis, hypothyroidism, hyperlipidemia who presented to the hospital on 10/16 after syncopal episode witnessed by at home due to severe abdominal pain. Dilated loops of bowel in the RLQ
seen on CT scan, concerns for obstructing mass. Colonoscopy 10/18 (Dr. Soliman) showed near ileocecal valve obstruction by a mass, biopsied, pathology pending. Elevated CEA, liver lesions suspicious for mets.
Assessment and plan:
#Small bowel ileus
#New small hypodense lesion within the liver
-S/p laparoscopic right hemicolectomy POD #3. Patient feeling better, complains of mild abdominal soreness but no pain.
-CEA elevated, AFP WNL.
-Follow pathology.
-Pain control.
-Simethicone PRN.
-Incentive spirometry.
-Continue clears and IV fluid until bowel function returns.
-OOB and ambulate.
-Follow pathology.
-PT/OT
#Syncope-suspect vasovagal from abdominal pain.
-EKG with sinus bradycardia which is chronic and stable. He is not on any beta-lyudmila. History of possible syncope in the past.
-Echo 10/08/2024 with normal EF 55 to 60%, biventricular size and systolic function normal.
-Outpatient cardiology follow-up.
#Mild hyponatremia
-Suspect SIADH
-Follow BMP
#History of paroxysmal atrial fibrillation
-NSR on telemetry.
-Not on anticoagulants or rate controlling agents
#Hypothyroidism
-TSH 1.99.
-Continue Synthroid 88 mcg.
#Hyperlipidemia
-Continue home rosuvastatin.
#Diverticulosis
#Chronic RBBB
#Chronic back pain
-Takes Aleve outpatient.
DVT PPx: Lovenox
CODE STATUS: DNR
Data:
CT abdomen/pelvis 10/16/2024:
1. Several new small hypodense lesions within the liver. While nonspecific, they do raise concern for the presence of hepatic metastatic disease.
2. Multiple dilated distal small bowel loops which extend into the ileocecal valve. Findings are suspicious for small bowel obstruction, however no definitive transition point identified. The ileocecal valve appears patent. No discrete lesions
identified. Ileus is alternative consideration. Extensive colonic diverticulosis with moderate stool burden.
3. Moderately calcified, normal caliber abdominal aorta. No evidence for aneurysm.
Abdominal MRI 10/16/2024:
Probable diffuse small bowel ileus, partially visualized on this exam. Otherwise no convincing acute process in the abdomen.
There are several scattered small hepatic lesions suspicious for metastases.
Colonoscopy 10/18/2024:
Findings:
An ulcerated partially obstructing mass was found at the ileocecal
valve. No bleeding was present. Biopsies were taken with a cold forceps
for histology. Difficult to biopsy due to angulation.
Multiple large-mouthed diverticula were found in the entire colon.
Elongated, tortuous colon.
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
ileocecal valve. Biopsied.
- Diverticulosis in the entire examined colon.
Anticipated Discharge: 24 - 48 hours
Subjective/Interval History
-
Date of Service: October 22, 2024
I saw and evaluated this patient. Patient was sitting on his bed, in no acute cardiopulmonary distress. Reports that he is frustrated that he is not able to pass gas or have a bowel movement. He reports feeling bloated. He looks sad, complaints
of mild soreness around surgery site but no pain. Denies abdominal pain, nausea, vomiting, chest pain, shortness of breath, fever or chills. He is moving around and using his incentive spirometer.
Objective Data
-
Labs:
Laboratory Results
10/22/24
06:06
WBC 7.3
Hgb 13.2
Hct 37.0 L
Plt Count 190
Vital Signs:
Vital Signs
Temp Pulse Resp BP Pulse Ox
98.0 F 92 18 141/80 94
10/22/24 07:00 10/22/24 07:00 10/22/24 07:00 10/22/24 07:00 10/22/24 07:00
I&O
10/21/24 10/22/24 10/23/24
06:59 06:59 06:59
Intake Total 1859
Output Total 1874
Balance 1859 45 45
Review of Systems
-
History Source: Patient
All other systems: Not reviewed unless documented
Constitutional: Reports No Symptoms; Denies Fever
Respiratory: Reports No Symptoms and Cough
Cardiac: Reports No Symptoms; Denies Chest Pain or Diaphoresis
Abdomen/GI: Reports No Symptoms; Denies Abdominal Pain, Nausea or Vomiting
Genitourinary: Reports No Symptoms
Musculoskeletal: Reports No Symptoms
Skin: Reports Rash
Neuro: Reports No Symptoms
Psych: Reports Sad and Anxious
Physical Exam
-
General: Well Developed, No Apparent Distress and Comfortable
HEENT: Normocephalic and Atraumatic
Respiratory: Clear to Auscultation; Negative Wheezes, Rales or Crackles
Cardiac: Regular Rhythm and S1/S2; Negative Murmur or Rub
GI: Soft, Nontender, Nondistended, Normal Bowel Sounds and Distended (Mildly)
Musculoskeletal: No Clubbing, No Cyanosis and No Edema
Skin: Warm, Dry, Rash (Bilateral hands) and Other (No erythema around surgery sites)
Neuro: Awake and AO x 3
Psych: Calm
Data Reviewed
-
Labs: Labs Reviewed by me and Discussed with Physician
--- NOTE | 2024-10-22 08:40 | W.PN.UPDATE ---
Update Note
Progress Note Update
I saw and evaluated the patient. I reviewed the resident�s note and agree with findings and plan as documented in the resident�s note.
Reports persistent abdominal pain. Denies flatus or BM.
Gen: NAD, AAOx3.
Eyes: EOMI, PERRLA, no scleral icterus.
Neck: supple.
CV: RRR, +S1/S2, no m/r/g.
Resp: CTAB, no rales, wheezes, or rhonchi.
Abd: remains +BS, soft, diffuse TTP, ND
Skin: No rashes.
Neuro: CN 2-12 intact, non-focal.
Psych: Normal mood and affect.
CT A/P: small new hypodense lesions in the liver. Multiple dilated small bowel loops extending into the ileocecal valve suspicious for small bowel obstruction with no transition point. Ileocecal valve patent constipation. Moderate calcified
normal caliber aorta
MRI abd: Probable diffuse small bowel ileus, partially visualized on this exam. Otherwise no convincing acute process in the abdomen. There are several scattered small hepatic lesions suspicious for metastases.
New small hypodense lesions within the liver:
-with SB ileus
-colonoscopy 10/18/24 with near obstructing mass at the ileocecal valve, biopsies pending
-AFP normal and CEA elevated but nonspecific
-surgery/ONC following
-s/p Laparoscopic right hemicolectomy on 10/19/24
-clears/IVFs
-one time dose toradol for pain now
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
Syncope:
-likely vasovagal and due to abdominal pain
-EKG SB
-seen by cards
-Echo 10/08/24: normal BiV sz/fxn, EF 55-60%.
Other problems:
Mild hyponatremia, likely SIADH
PAF: Not on AC or rate controlling agents
Hypothyroidism: continue Synthroid
Hyperlipidemia: continue statin
Chronic RBBB
Chronic back pain/neuropathy/scoliosis/DJD/arthritis
DNR/Lovenox
[2024-10-22] MEDS: VITAMIN B-12 1000 MCG PO (08:47)
[2024-10-22] MEDS: VITAMIN D3 (cholecalciferol) 100 MCG PO (08:47)
[2024-10-22] MEDS: CLARITIN 10 MG PO (08:47)
[2024-10-22] MEDS: TORADOL 15 MG IV ×2 (10:15→15:40)
--- NOTE | 2024-10-22 11:43 | W.PN.ONC2 ---
Today's Communication / Plan
-
.
Impression
Impression
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
Laparoscopic right hemicolectomy 10/19/2024, no liver bx performed, follow for surgical path
Liver hypodensities
Syncope
Plan
Plan
follow for path
CEA of 13.6 is elevated but non-specific.
Anticipate outpt PET to eval liver lesions once tissue dx available.
No anemia or uncontrolled pain.
Optimize PS, PT/OT
and son at bedside, questions answered.
Subjective/Objective
Subjective
no new complaints
no flatulence or BM
increased ab distention
denies n/v
Vital Signs:
Vital Signs
Temp Pulse Resp BP Pulse Ox
98.0 F 92 18 141/80 94
10/22/24 07:00 10/22/24 07:00 10/22/24 07:00 10/22/24 07:00 10/22/24 07:00
Lab Results:
Laboratory Data
WBC 7.3 10^3/uL (4.8-10.8) 10/22/24 06:06
Hgb 13.2 g/dL (13.0-18.0) 10/22/24 06:06
Plt Count 190 10^3/uL (130-400) 10/22/24 06:06
eGFR > 60.00 10/21/24 07:13
--- NOTE | 2024-10-22 11:51 | CM ---
Met with patient and at bedside
Patient OOB ambulating in room; reported that he does his therapy exercises at home; does not need outpatient therapy
reported she will transport home
Plan: discharge to home when medically cleared
[2024-10-22 15:00] VITALS: BP 128/80
[2024-10-22] MEDS: D5/0.9% SODIUM CHLORIDE 1000 IV (15:36)
[2024-10-22] MEDS: CRESTOR 10 MG PO (17:36)
[2024-10-22] MEDS: LOVENOX 40 MG SC (17:36)
[2024-10-22] MEDS: MYLICON 80 MG PO (19:44)
[2024-10-22] MEDS: MELATONIN 3 MG PO (21:06)
[2024-10-22] MEDS: PEPCID 20 MG PO (21:06)
[2024-10-22 23:21] VITALS: BP 147/76
[2024-10-23] MEDS: TORADOL 15 MG IV ×2 (01:35→09:39)
[2024-10-23] MEDS: SYNTHROID 88 MCG PO (05:13)
[2024-10-23 07:25] VITALS: BP 159/94
[2024-10-23] MEDS: CLARITIN 10 MG PO (07:54)
[2024-10-23] MEDS: VITAMIN D3 (cholecalciferol) 100 MCG PO (07:54)
[2024-10-23] MEDS: VITAMIN B-12 1000 MCG PO (07:54)
--- NOTE | 2024-10-23 07:58 | W.PN.HOSP.TC ---
Today's Communication/Plan
-
Pain control
OOB and ambulate
Advance diet
Assessment / Plan
Assessment / Plan
89-year-old male with PMH of appendectomy, A-fib, diverticulitis, hypothyroidism, hyperlipidemia who presented to the hospital on 10/16 after syncopal episode witnessed by at home due to severe abdominal pain. Dilated loops of bowel in the RLQ
seen on CT scan, concerns for obstructing mass. Colonoscopy 10/18 (Dr. Soliman) showed near ileocecal valve obstruction by a mass, biopsied, pathology pending. Elevated CEA, liver lesions suspicious for mets.
Assessment and plan:
#Small bowel ileus
#New small hypodense lesion within the liver
-S/p laparoscopic right hemicolectomy POD #4. Patient feeling better, complains of mild abdominal soreness but no pain.
-Advance diet to full liquid.
-Pain control.
-Follow pathology.
-Simethicone PRN.
-Incentive spirometry.
-Continue IVF.
-OOB and ambulate.
-Follow pathology.
-PT/OT
#Syncope-suspect vasovagal from abdominal pain.
-EKG with sinus bradycardia which is chronic and stable. He is not on any beta-lyudmila. History of possible syncope in the past.
-Echo 10/08/2024 with normal EF 55 to 60%, biventricular size and systolic function normal.
-Outpatient cardiology follow-up.
#Mild hyponatremia
-Suspect SIADH
-Follow BMP
#History of paroxysmal atrial fibrillation
-NSR on telemetry.
-Not on anticoagulants or rate controlling agents
#Hypothyroidism
-TSH 1.99.
-Continue Synthroid 88 mcg.
#Hyperlipidemia
-Continue home rosuvastatin.
#Diverticulosis
#Chronic RBBB
#Chronic back pain
-Takes Aleve outpatient.
D/W general surgery.
DVT PPx: Elox
CODE STATUS: DNR
Data:
CT abdomen/pelvis 10/16/2024:
1. Several new small hypodense lesions within the liver. While nonspecific, they do raise concern for the presence of hepatic metastatic disease.
2. Multiple dilated distal small bowel loops which extend into the ileocecal valve. Findings are suspicious for small bowel obstruction, however no definitive transition point identified. The ileocecal valve appears patent. No discrete lesions
identified. Ileus is alternative consideration. Extensive colonic diverticulosis with moderate stool burden.
3. Moderately calcified, normal caliber abdominal aorta. No evidence for aneurysm.
Abdominal MRI 10/16/2024:
Probable diffuse small bowel ileus, partially visualized on this exam. Otherwise no convincing acute process in the abdomen.
There are several scattered small hepatic lesions suspicious for metastases.
Colonoscopy 10/18/2024:
Findings:
An ulcerated partially obstructing mass was found at the ileocecal
valve. No bleeding was present. Biopsies were taken with a cold forceps
for histology. Difficult to biopsy due to angulation.
Multiple large-mouthed diverticula were found in the entire colon.
Elongated, tortuous colon.
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
ileocecal valve. Biopsied.
- Diverticulosis in the entire examined colon.
Anticipated Discharge: 24 - 48 hours
Subjective/Interval History
-
Date of Service: October 23, 2024
I saw and evaluated patient. Patient reports right lower quadrant abdominal pain 8 out of 10 that has been worsening since yesterday. He got an extra dose of Toradol overnight and stated that the pain is not well-controlled. He denies nausea,
vomiting, chest pain, fever or chills.
Objective Data
-
Labs:
Laboratory Results
10/23/24
06:00
WBC Pending
Hgb Pending
Hct Pending
Plt Count Pending
Sodium Pending
Potassium Pending
Chloride Pending
Carbon Dioxide Pending
BUN Pending
Creatinine Pending
Glucose Pending
Calcium Pending
Vital Signs:
Vital Signs
Temp Pulse Resp BP Pulse Ox
97.6 F 75 18 147/76 95
10/22/24 23:21 10/22/24 23:21 10/22/24 23:21 10/22/24 23:21 10/22/24 23:21
I&O
10/22/24 10/23/24 10/24/24
06:59 06:59 06:59
Intake Total 1920 / 1920 2160 / 2160
Output Total 1875 / 1875 1500 / 1500
Balance 45 / 45 660 / 660
Review of Systems
-
History Source: Patient
All other systems: Not reviewed unless documented
Constitutional: Reports No Symptoms; Denies Fever
Respiratory: Reports No Symptoms and Cough
Cardiac: Reports No Symptoms; Denies Chest Pain or Diaphoresis
Abdomen/GI: Reports Abdominal Pain; Denies Nausea or Vomiting
Genitourinary: Reports No Symptoms
Musculoskeletal: Reports No Symptoms
Skin: Reports Rash
Neuro: Reports No Symptoms
Physical Exam
-
General: Well Developed, No Apparent Distress and Comfortable
HEENT: Normocephalic and Atraumatic
Respiratory: Clear to Auscultation; Negative Wheezes, Rales or Crackles
Cardiac: Regular Rhythm and S1/S2; Negative Murmur or Rub
GI: Soft, Nontender, Nondistended, Normal Bowel Sounds and Distended (Mildly)
Musculoskeletal: No Clubbing, No Cyanosis and No Edema
Skin: Warm, Dry, Rash (Bilateral hands) and Other (No erythema around surgery sites)
Neuro: Awake and AO x 3
Psych: Calm
Data Reviewed
-
Labs: Labs Reviewed by me and Discussed with Physician
[2024-10-23 08:23] LABS: Hematocrit 34.1 % (39.0-52.0); Mean Corp Hgb Conc. 35.2 g/dL (33.0-37.0); Mean Corpuscular Hgb 31.7 pg (27.0-31.0); Mean Platelet Volume 11.7 fL (7.4-10.4); Platelet Count 153 10^3/uL (130-400); Red Blood Cell Count 3.79 10^6/uL (4.70-6.10); Red Cell Dist. Width 12.2 % (11.5-14.5); White Blood Cell Count 4.6 10^3/uL (4.8-10.8)
[2024-10-23 08:58] LABS: Blood Urea Nitrogen 5 mg/dl (9-20); Calcium 9.1 mg/dl (8.4-10.2); Carbon Dioxide 27 mmol/L (22-30); Chloride 98 mmol/L (98-107); Estimated Creatinine Clearance 74 ml/min; Glucose 112 mg/dl (70-99); Potassium 3.6 mmol/L (3.5-5.1); Sodium 132 mmol/L (135-145); eGFR > 60.00
--- NOTE | 2024-10-23 09:25 | W.PN.GS2 ---
Addendum entered and electronically signed by Aniket Shukla MD 10/23/24 10:00:
I saw and examined the patient.
The Dem[employer] Equipment Repairer's note was reviewed and I agree with the note.
Comment: AFVSS, new pain to RUQ, moderate. Has not been taking pain meds regularly. Otherwise feels well appetite good and asking to advance diet. Passing flatus. moderate ttp to RUQ noted. WBC WNL with no upward trend. Will adv to fulls, monitor
pain over next 24 hrs with a view toward possible imaging if it does not improve or other issues arise.
Original Note:
Today's Communication / Plan
-
Analgesics prn
Advance to FLD
Assessment / Plan
-
This is an 89-year-old male with a history of remote open appendectomy, A-fib, skin cancer, hyperlipidemia, hypothyroidism, diverticulitis who presented to our hospital 10/16/2024 following a syncopal episode at home and awoke with severe abdominal
pain. CT abdomen pelvis showed multiple dilated loops of bowel in the right lower quadrant extending to the ileocecal valve with concern for a mass in this area. Dr. Soliman performed a colonoscopy on 10/18/2024 which demonstrated a near obstructing
mass at the ileocecal valve, biopsies pending. CEA is elevated. There were also liver lesions suspicious metastatic spread.
POD #4 laparoscopic right hemicolectomy.
Returning bowel function
Pain a bit worse today, encouraged use of analgesics
Labs stable, AFVSS
Plan:
Incentive spirometry
Advance to FLD
Analgesics as needed
Out of bed and ambulate
Lovenox, SCDs
Subjective Data
-
Date of Service: October 23, 2024
Patient seen and examined at bedside with Dr. Shukla. Denies n/v. Feels very hungry. Passed a lot of gas yesterday. Pain to right abdomen a bit worse today, but has been holding off on taking analgesics.
Objective Data
-
Intake and Output
10/22/24 10/23/24 10/24/24
06:59 06:59 06:59
Intake Total 1919 2160 / 2160
Output Total 1874 1500 / 1500
Balance 45 / 45 660 / 660
Intake:
Oral fluids 1320 / 1320 960 / 960
IV fluids (Total) 600 / 600 1200 / 1200
Output:
Urine, Voided 1874 1500 / 1500
Other:
Number of approximated MODERATE 2 1
amounts of urine
Vital Signs
Temp Pulse Resp BP Pulse Ox
97.6 F 96 18 159/94 98
10/23/24 07:25 10/23/24 07:25 10/23/24 07:25 10/23/24 07:25 10/23/24 07:25
Lab Results
10/23/24 08:09
10/23/24 08:09
Calcium 9.1 mg/dl (8.4-10.2) 10/23/24 08:09
Magnesium 2.1 mg/dl (1.6-2.3) 10/16/24 09:53
Total Bilirubin Cancelled 10/16/24 12:33
Direct Bilirubin Cancelled 10/16/24 12:33
AST Cancelled 10/16/24 12:33
ALT Cancelled 10/16/24 12:33
Alkaline Phosphatase Cancelled 10/16/24 12:33
Total Protein Cancelled 10/16/24 12:33
Albumin Cancelled 10/16/24 12:33
Physical Exam
-
GENERAL/NEURO: Awake, Alert, no distress
CHEST: Unlabored breathing on RA
ABDOMEN: Soft, appropriately tender to right side of abdomen, ND, incisions clean dry and intact
Patient has a peters catheter: No
Patient has a central line: No
--- NOTE | 2024-10-23 10:18 | W.PN.UPDATE ---
Update Note
Progress Note Update
I saw and evaluated the patient. I reviewed the resident�s note and agree with findings and plan as documented in the resident�s note.
Reports RLQ abd pain.
Gen: NAD, AAOx3.
Eyes: EOMI, PERRLA, no scleral icterus.
Neck: supple.
CV: remains RRR, +S1/S2, no m/r/g.
Resp: remains CTAB, no rales, wheezes, or rhonchi.
Abd: +BS, soft, RLQ TTP, ND
Skin: No rashes.
Neuro: CN 2-12 intact, non-focal.
Psych: Normal mood and affect.
CT A/P: small new hypodense lesions in the liver. Multiple dilated small bowel loops extending into the ileocecal valve suspicious for small bowel obstruction with no transition point. Ileocecal valve patent constipation. Moderate calcified
normal caliber aorta
MRI abd: Probable diffuse small bowel ileus, partially visualized on this exam. Otherwise no convincing acute process in the abdomen. There are several scattered small hepatic lesions suspicious for metastases.
New small hypodense lesions within the liver:
-with SB ileus
-colonoscopy 10/18/24 with near obstructing mass at the ileocecal valve, biopsies pending
-AFP normal and CEA elevated but nonspecific
-surgery/ONC following
-s/p Laparoscopic right hemicolectomy on 10/19/24
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
-follow surgical path
-advance to full liquids
-it pt still with abd pain tomorrow will check CT A/P
Syncope:
-likely vasovagal and due to abdominal pain
-EKG SB
-seen by cards
-Echo 10/08/24: normal BiV sz/fxn, EF 55-60%.
Other problems:
Mild hyponatremia, likely SIADH
PAF: Not on AC or rate controlling agents
Hypothyroidism: continue Synthroid
Hyperlipidemia: continue statin
Chronic RBBB
Chronic back pain/neuropathy/scoliosis/DJD/arthritis
DNR/Lovenox
[2024-10-23] MEDS: D5/0.9% SODIUM CHLORIDE 1000 IV (10:52)
--- NOTE | 2024-10-23 12:59 | W.PN.ONC2 ---
Today's Communication / Plan
-
.
Impression
Impression
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
Laparoscopic right hemicolectomy 10/19/2024, no liver bx performed, follow for surgical path
Liver hypodensities
Syncope
Plan
Plan
follow for path
CEA of 13.6 is elevated but non-specific.
Anticipate outpt PET to eval liver lesions once tissue dx available.
No anemia or uncontrolled pain.
Optimize PS, PT/OT
at bedside, questions answered.
Subjective/Objective
Subjective
passing flatus,no BM
denies nausea
continues with ab pain
Vital Signs:
Vital Signs
Temp Pulse Resp BP Pulse Ox
97.6 F 96 18 159/94 98
10/23/24 07:25 10/23/24 07:25 10/23/24 07:25 10/23/24 07:25 10/23/24 07:25
Lab Results:
Laboratory Data
WBC 4.6 10^3/uL (4.8-10.8) L 10/23/24 08:09
Hgb 12.0 g/dL (13.0-18.0) L 10/23/24 08:09
Plt Count 153 10^3/uL (130-400) 10/23/24 08:09
eGFR > 60.00 10/23/24 08:09
--- NOTE | 2024-10-23 14:07 | CM ---
CM reviewed medical records. Plan to advance diet to fulls. CM will remain available as needed.
PLAN: home no needs.
[2024-10-23] MEDS: ROXICODONE 5 MG PO (14:15)
[2024-10-23 15:16] VITALS: BP 125/73
[2024-10-23] MEDS: LOVENOX 40 MG SC (17:02)
[2024-10-23] MEDS: CRESTOR 10 MG PO (17:02)
[2024-10-23] MEDS: DILAUDID 0.5 MG IV (17:05)
[2024-10-23] MEDS: MELATONIN 3 MG PO (21:06)
[2024-10-23] MEDS: PEPCID 20 MG PO (21:06)
[2024-10-23 23:10] VITALS: BP 135/88
[2024-10-24] MEDS: SYNTHROID 88 MCG PO (04:44)
[2024-10-24] MEDS: D5/0.9% SODIUM CHLORIDE 1000 IV (05:52)
[2024-10-24 06:27] LABS: Blood Urea Nitrogen 4 mg/dl (9-20); Calcium 9.3 mg/dl (8.4-10.2); Carbon Dioxide 25 mmol/L (22-30); Chloride 101 mmol/L (98-107); Estimated Creatinine Clearance 65 ml/min; Glucose 120 mg/dl (70-99); Hematocrit 34.7 % (39.0-52.0); Hemoglobin 12.1 g/dL (13.0-18.0); Mean Corp Hgb Conc. 34.9 g/dL (33.0-37.0); Mean Corpuscular Hgb 31.7 pg (27.0-31.0); Mean Corpuscular Volume 90.8 fL (80.0-94.0); Mean Platelet Volume 10.7 fL (7.4-10.4); Platelet Count 208 10^3/uL (130-400); Potassium 4.2 mmol/L (3.5-5.1); Red Blood Cell Count 3.82 10^6/uL (4.70-6.10); Red Cell Dist. Width 12.6 % (11.5-14.5); Sodium 135 mmol/L (135-145); eGFR > 60.00
[2024-10-24 07:41] VITALS: BP 151/76
--- NOTE | 2024-10-24 07:45 | W.PN.HOSP.TC ---
Addendum entered and electronically signed by Adis Perkins MD 10/24/24 15:34:
I saw and evaluated the patient. I reviewed the resident�s note and agree with findings and plan as documented in the resident�s note.
Pain seems to be still going on
Abdomen exam is soft, has bowels sounds passing flatus
Continue pain control
Diet advanced watch closely
If patient has fever or leukocytosis with pain then consider repeating CAT scan.
Discussed with nursing
Original Note:
Today's Communication/Plan
-
Advance diet
Pain control
Follow pathology
Assessment / Plan
Assessment / Plan
89-year-old male with PMH of appendectomy, A-fib, diverticulitis, hypothyroidism, hyperlipidemia who presented to the hospital on 10/16 after syncopal episode witnessed by at home due to severe abdominal pain. Dilated loops of bowel in the RLQ
seen on CT scan, concerns for obstructing mass. Colonoscopy 10/18 (Dr. Soliman) showed near ileocecal valve obstruction by a mass, biopsied, pathology pending. Elevated CEA, liver lesions suspicious for mets.
Assessment and plan:
#Small bowel ileus
#New small hypodense lesion within the liver
-S/p laparoscopic right hemicolectomy POD #5. Complains of right abdominal pain.
-Diet advanced to low residue.
-Will control pain with oxycodone and give Dilaudid for breakthrough pain.
-Follow pathology.
-Oncology following.
-Simethicone PRN.
-Incentive spirometry.
-Continue IVF.
-OOB and ambulate.
-PT/OT
#Syncope-suspect vasovagal from abdominal pain.
-EKG with sinus bradycardia which is chronic and stable. He is not on any beta-lyudmila. History of possible syncope in the past.
-Echo 10/08/2024 with normal EF 55 to 60%, biventricular size and systolic function normal.
-Outpatient cardiology follow-up.
#Mild hyponatremia
-Suspect SIADH
-Follow BMP
#History of paroxysmal atrial fibrillation
-NSR on telemetry.
-Not on anticoagulants or rate controlling agents
#Hypothyroidism
-TSH 1.99.
-Continue Synthroid 88 mcg.
#Hyperlipidemia
-Continue home rosuvastatin.
#Diverticulosis
#Chronic RBBB
#Chronic back pain
-Takes Aleve outpatient.
D/W general surgery.
DVT PPx: Lovenox
CODE STATUS: DNR
Data:
CT abdomen/pelvis 10/16/2024:
1. Several new small hypodense lesions within the liver. While nonspecific, they do raise concern for the presence of hepatic metastatic disease.
2. Multiple dilated distal small bowel loops which extend into the ileocecal valve. Findings are suspicious for small bowel obstruction, however no definitive transition point identified. The ileocecal valve appears patent. No discrete lesions
identified. Ileus is alternative consideration. Extensive colonic diverticulosis with moderate stool burden.
3. Moderately calcified, normal caliber abdominal aorta. No evidence for aneurysm.
Abdominal MRI 10/16/2024:
Probable diffuse small bowel ileus, partially visualized on this exam. Otherwise no convincing acute process in the abdomen.
There are several scattered small hepatic lesions suspicious for metastases.
Colonoscopy 10/18/2024:
Findings:
An ulcerated partially obstructing mass was found at the ileocecal
valve. No bleeding was present. Biopsies were taken with a cold forceps
for histology. Difficult to biopsy due to angulation.
Multiple large-mouthed diverticula were found in the entire colon.
Elongated, tortuous colon.
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
ileocecal valve. Biopsied.
- Diverticulosis in the entire examined colon.
Anticipated Discharge: 24 - 48 hours
Subjective/Interval History
-
Date of Service: October 24, 2024
I have seen and evaluated patient. Patient complaining of pain 10/10 in the right upper and lower quadrants. Pain does not radiate but improves with Dilaudid. Denies fever or chills. Denies headache, shortness of breath, chest pain, nausea,
vomiting. He has been passing gas but has not had any bowel movements yet.
Objective Data
-
Labs:
Laboratory Results
10/24/24
05:25
WBC 5.0
Hgb 12.1 L
Hct 34.7 L
Plt Count 208 D
Sodium 135
Potassium 4.2
Chloride 101
Carbon Dioxide 25
BUN 4 L
Creatinine 0.8
Glucose 120 H
Calcium 9.3
Vital Signs:
Vital Signs
Temp Pulse Resp BP Pulse Ox
98.0 F 75 18 151/76 98
10/24/24 07:41 10/24/24 07:41 10/24/24 07:41 10/24/24 07:41 10/24/24 07:41
I&O
10/23/24 10/24/24 10/25/24
06:59 06:59 07:59
Intake Total 2160 / 2160 1080 / 1080
Output Total 1500 / 1500 1875 / 1875
Balance 660 / 660 -795 / -795
Review of Systems
-
History Source: Patient
All other systems: Not reviewed unless documented
Constitutional: Reports No Symptoms; Denies Fever
Respiratory: Reports No Symptoms and Cough
Cardiac: Reports No Symptoms; Denies Chest Pain or Diaphoresis
Abdomen/GI: Reports Abdominal Pain (Right sided); Denies Nausea or Vomiting
Genitourinary: Reports No Symptoms
Musculoskeletal: Reports No Symptoms
Skin: Reports Rash
Neuro: Reports No Symptoms
Physical Exam
-
General: Well Developed, No Apparent Distress and Comfortable
HEENT: Normocephalic and Atraumatic
Respiratory: Clear to Auscultation; Negative Wheezes, Rales or Crackles
Cardiac: Regular Rhythm and S1/S2; Negative Murmur or Rub
GI: Soft, Nontender, Normal Bowel Sounds and Tender (Right abdominal tenderness with guarding)
Musculoskeletal: No Clubbing, No Cyanosis and No Edema
Skin: Warm, Dry, Rash (Bilateral hands) and Other (No erythema around surgery sites)
Neuro: Awake and AO x 3
Psych: Calm
Data Reviewed
-
Labs: Labs Reviewed by me and Discussed with Physician
Old Records: Reviewed
[2024-10-24] MEDS: DILAUDID 0.5 MG IV (08:44)
[2024-10-24] MEDS: CLARITIN 10 MG PO (08:44)
[2024-10-24] MEDS: VITAMIN B-12 1000 MCG PO (08:44)
[2024-10-24] MEDS: VITAMIN D3 (cholecalciferol) 100 MCG PO (08:44)
--- NOTE | 2024-10-24 13:13 | W.PN.GS2 ---
Addendum entered and electronically signed by Francis Martinez MD 10/24/24 14:10:
Patient seen and examined earlier in the day with nurse practitioner. Agree with documented progress note
Doing well with postoperative recovery, passing flatus and feels urge to have bowel movement.
Tolerating diet with appetite returning, no nausea, no vomiting
Minimal postoperative incisional discomfort/soreness controlled without narcotics
AFVSS
ABD: Soft, nondistended, mild tenderness at incision sites. Aquacel dressing removed.
A/P: POD #6 lap right hemicolectomy
Low residue diet
DC IV fluids
Given improving postop GI function now okay to place on bowel regiment -utilizes MiraLAX and Colace on a regular basis at home
Probable DC tomorrow
Original Note:
Today's Communication / Plan
-
Advance diet
Assessment / Plan
-
This is an 89-year-old male with a history of remote open appendectomy, A-fib, skin cancer, hyperlipidemia, hypothyroidism, diverticulitis who presented to our hospital 10/16/2024 following a syncopal episode at home and awoke with severe abdominal
pain. CT abdomen pelvis showed multiple dilated loops of bowel in the right lower quadrant extending to the ileocecal valve with concern for a mass in this area. Dr. Soliman performed a colonoscopy on 10/18/2024 which demonstrated a near obstructing
mass at the ileocecal valve, biopsies pending. CEA is elevated. There were also liver lesions suspicious metastatic spread.
POD #6 laparoscopic right hemicolectomy.
Returning bowel function
Pain improved, tolerated FLD
Labs stable, AFVSS
Plan:
Advance to LRD
OR path pending
Analgesics as needed
Out of bed and ambulate
DC IVF
Lovenox, SCDs
Subjective Data
-
Date of Service: October 24, 2024
Patient seen and examined at bedside with Dr. Martinez. Denies n/v. Passing gas, no bm as of yet. Pain much better today. Tolerating liquids and would like to try more.
Objective Data
-
Intake and Output
10/23/24 10/24/24 10/25/24
06:59 06:59 07:59
Intake Total 2160 / 2160 1080 / 1080 630 / 630
Output Total 1500 / 1500 1875 / 1875 900 / 900
Balance 660 / 660 -795 / -795 -270 / -270
Intake:
Oral fluids 960 / 960 480 / 480 480 / 480
IV fluids (Total) 1200 / 1200 600 / 600 150 / 150
Output:
Urine, Voided 1500 / 1500 1874 / 1874 900 / 900
Other:
Number of approximated MODERATE 1
amounts of urine
Vital Signs
Temp Pulse Resp BP Pulse Ox
98.0 F 75 18 151/76 98
10/24/24 07:41 10/24/24 07:41 10/24/24 07:41 10/24/24 07:41 10/24/24 07:41
Lab Results
10/24/24 05:25
10/24/24 05:25
Calcium 9.3 mg/dl (8.4-10.2) 10/24/24 05:25
Magnesium 2.1 mg/dl (1.6-2.3) 10/16/24 09:53
Total Bilirubin Cancelled 10/16/24 12:33
Direct Bilirubin Cancelled 10/16/24 12:33
AST Cancelled 10/16/24 12:33
ALT Cancelled 10/16/24 12:33
Alkaline Phosphatase Cancelled 10/16/24 12:33
Total Protein Cancelled 10/16/24 12:33
Albumin Cancelled 10/16/24 12:33
Physical Exam
-
GENERAL/NEURO: Awake, Alert, no distress
CHEST: Unlabored breathing on RA
ABDOMEN: Soft, NT, ND, incisions clean dry and intact, dressing removed with intact midline incision
Patient has a peters catheter: No
Patient has a central line: No
[2024-10-24] MEDS: COLACE 100 MG PO (14:45)
[2024-10-24] MEDS: MIRALAX 17 GRAMS PO (14:45)
[2024-10-24 15:15] VITALS: BP 148/90
[2024-10-24] MEDS: CRESTOR 10 MG PO (17:11)
[2024-10-24] MEDS: LOVENOX 40 MG SC (17:11)
[2024-10-24] MEDS: ROXICODONE 5 MG PO (18:00)
[2024-10-24] MEDS: MELATONIN 3 MG PO (20:59)
[2024-10-24] MEDS: PEPCID 20 MG PO (20:59)
[2024-10-24 22:59] VITALS: BP 154/76
[2024-10-25] MEDS: SYNTHROID 88 MCG PO (05:45)
[2024-10-25 07:12] LABS: Hematocrit 33.3 % (39.0-52.0); Hemoglobin 11.6 g/dL (13.0-18.0); Mean Corp Hgb Conc. 34.8 g/dL (33.0-37.0); Mean Corpuscular Volume 91.7 fL (80.0-94.0); Platelet Count 184 10^3/uL (130-400); Red Blood Cell Count 3.63 10^6/uL (4.70-6.10); Red Cell Dist. Width 12.5 % (11.5-14.5); White Blood Cell Count 5.1 10^3/uL (4.8-10.8)
[2024-10-25 07:33] VITALS: BP 133/66
[2024-10-25 07:36] LABS: Blood Urea Nitrogen 5 mg/dl (9-20); Calcium 9.3 mg/dl (8.4-10.2); Carbon Dioxide 26 mmol/L (22-30); Chloride 98 mmol/L (98-107); Estimated Creatinine Clearance 65 ml/min; Glucose 97 mg/dl (70-99); Potassium 3.6 mmol/L (3.5-5.1); Sodium 132 mmol/L (135-145); eGFR > 60.00
--- NOTE | 2024-10-25 07:40 | W.PN.HOSP.TC ---
Addendum entered and electronically signed by Adis Perkins MD 10/25/24 13:05:
I saw and evaluated the patient. I reviewed the resident�s note and agree with findings and plan as documented in the resident�s note.
Pt feels well and anxious to go home.
CVS: S1-S2 normal
Chest: CTA B/L
Abdomen: Soft, NT , Bowel sounds present
Extremities: No edema
Patient is aware that he needs to follow-up with surgeon regarding the ileocecal mass biopsy results to guide further treatment. He seems to be tolerating a diet with no problems. Per discussion with surgery we will plan discharge today.
Discussed with family at bedside
More than 30 minutes spent in discharge including
Final examination of the patient
Summarizing hospital stay
Instructions for continuing care to all relevant caregivers
Preparation of discharge records, prescriptions, and referral forms
Total time spent (in minutes): 37 min
Original Note:
Today's Communication/Plan
-
Pain control
Bowel regimen
Discharge planning
Assessment / Plan
Assessment / Plan
89-year-old male with PMH of appendectomy, A-fib, diverticulitis, hypothyroidism, hyperlipidemia who presented to the hospital on 10/16 after syncopal episode witnessed by at home due to severe abdominal pain. Dilated loops of bowel in the RLQ
seen on CT scan, concerns for obstructing mass. Colonoscopy 10/18 (Dr. Soliman) showed near ileocecal valve obstruction by a mass, biopsied, pathology pending. Elevated CEA, liver lesions suspicious for mets.
Assessment and plan:
#Small bowel ileus
#New small hypodense lesion within the liver
-S/p laparoscopic right hemicolectomy POD #6.
-Doing well and passing flatus with some urge for BM.
-Pain well-controlled.
-Tolerating diet with no nausea or vomiting.
-Continue MiraLAX and Colace on discharge.
-Surgery appreciated.
-Follow pathology.
-Encourage OOB and ambulate.
-PT/OT
#Syncope-suspect vasovagal from abdominal pain.
-Resolved.
-EKG with sinus bradycardia which is chronic and stable. He is not on any beta-lyudmila. History of possible syncope in the past.
-Echo 10/08/2024 with normal EF 55 to 60%, biventricular size and systolic function normal.
-Outpatient cardiology follow-up.
#Mild hyponatremia
-Suspect SIADH.
-Follow BMP.
#History of paroxysmal atrial fibrillation
-NSR on telemetry.
-Not on anticoagulants or rate controlling agents
#Hypothyroidism
-TSH 1.99.
-Continue Synthroid 88 mcg.
#Hyperlipidemia
-Continue home rosuvastatin.
#Diverticulosis
#Chronic RBBB
#Chronic back pain
-Takes Aleve outpatient.
D/W general surgery.
DVT PPx: Lovenox
CODE STATUS: DNR
Data:
CT abdomen/pelvis 10/16/2024:
1. Several new small hypodense lesions within the liver. While nonspecific, they do raise concern for the presence of hepatic metastatic disease.
2. Multiple dilated distal small bowel loops which extend into the ileocecal valve. Findings are suspicious for small bowel obstruction, however no definitive transition point identified. The ileocecal valve appears patent. No discrete lesions
identified. Ileus is alternative consideration. Extensive colonic diverticulosis with moderate stool burden.
3. Moderately calcified, normal caliber abdominal aorta. No evidence for aneurysm.
Abdominal MRI 10/16/2024:
Probable diffuse small bowel ileus, partially visualized on this exam. Otherwise no convincing acute process in the abdomen.
There are several scattered small hepatic lesions suspicious for metastases.
Colonoscopy 10/18/2024:
Findings:
An ulcerated partially obstructing mass was found at the ileocecal
valve. No bleeding was present. Biopsies were taken with a cold forceps
for histology. Difficult to biopsy due to angulation.
Multiple large-mouthed diverticula were found in the entire colon.
Elongated, tortuous colon.
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
ileocecal valve. Biopsied.
- Diverticulosis in the entire examined colon.
Anticipated Discharge: Today
Subjective/Interval History
-
Date of Service: October 25, 2024
I saw and evaluated patient. He was lying in bed in no acute distress. He stated that he has been passing gas but no BM yet. He reports that his abdominal pain has resolved and is ready to go home. He reports good appetite. Denies chest pain,
shortness of breath, nausea, vomiting, fever or chills.
Objective Data
-
Labs:
Laboratory Results
10/25/24
06:04
WBC 5.1
Hgb 11.6 L
Hct 33.3 L
Plt Count 184
Sodium 132 L
Potassium 3.6
Chloride 98
Carbon Dioxide 26
BUN 5 L
Creatinine 0.8
Glucose 97
Calcium 9.3
Vital Signs:
Vital Signs
Temp Pulse Resp BP Pulse Ox
97.7 F 60 17 133/66 96
10/25/24 07:33 10/25/24 07:33 10/25/24 07:33 10/25/24 07:33 10/25/24 07:33
I&O
10/24/24 10/25/24 10/26/24
05:59 06:59 06:59
Intake Total
Output Total
Balance
Review of Systems
-
History Source: Patient
All other systems: Not reviewed unless documented
Constitutional: Reports No Symptoms; Denies Fever
Respiratory: Reports No Symptoms and Cough
Cardiac: Reports No Symptoms; Denies Chest Pain or Diaphoresis
Abdomen/GI: Reports Abdominal Pain (Right sided); Denies Nausea or Vomiting
Genitourinary: Reports No Symptoms
Musculoskeletal: Reports No Symptoms
Skin: Reports Rash
Neuro: Reports No Symptoms
Hematologic / Lymphatic: Reports No Symptoms
Allergy / Immunology: Reports No Symptoms
Physical Exam
-
General: Well Developed, No Apparent Distress, Comfortable and Conversant
HEENT: Normocephalic and Atraumatic
Respiratory: Clear to Auscultation; Negative Wheezes, Rales or Crackles
Cardiac: Regular Rhythm and S1/S2; Negative Murmur or Rub
GI: Soft, Nontender, Nondistended and Normal Bowel Sounds
Musculoskeletal: No Clubbing, No Cyanosis and No Edema
Skin: Warm, Dry, Rash (Bilateral hands) and Other (No erythema around surgery sites)
Neuro: Awake, Oriented and AO x 3
Psych: Calm
Data Reviewed
-
Labs: Labs Reviewed by me, Discussed with Physician and Discussed with Patient
[2024-10-25] MEDS: CLARITIN 10 MG PO (08:21)
[2024-10-25] MEDS: VITAMIN D3 (cholecalciferol) 100 MCG PO (08:21)
[2024-10-25] MEDS: VITAMIN B-12 1000 MCG PO (08:21)
[2024-10-25] MEDS: MIRALAX 17 GRAMS PO (08:21)
[2024-10-25] MEDS: ANESTHETIC LOZENGE 1 LOZENGE PO (08:21)
[2024-10-25] MEDS: COLACE 100 MG PO (08:21)
--- NOTE | 2024-10-25 10:54 | W.PN.GS2 ---
Addendum entered and electronically signed by Francis Martinez MD 10/25/24 11:01:
Patient seen and examined in follow-up with surgical MANAGER LSW. Agree with documented progress note
Patient doing quite well and tolerating dietary advancement
Passing flatus on a regular basis. No nausea, no anorexia, no abdominal bloating. No bowel movement yet
AFVSS
NAD AAOx3
ABD: Soft, nondistended, nontender. Surgical sites healing well.
Assessment/plan: POD #6 status post lap right hemicolectomy
Low residue diet
Maintain home bowel regiment with MiraLAX and Colace
Doing well, stable for discharge from surgical standpoint. Outpatient surgical follow-up with Dr. Burris in 2 to 3 weeks.
Path remains pending
Original Note:
Today's Communication / Plan
-
dispo planning
Assessment / Plan
-
This is an 89-year-old male with a history of remote open appendectomy, A-fib, skin cancer, hyperlipidemia, hypothyroidism, diverticulitis who presented to our hospital 10/16/2024 following a syncopal episode at home and awoke with severe abdominal
pain. CT abdomen pelvis showed multiple dilated loops of bowel in the right lower quadrant extending to the ileocecal valve with concern for a mass in this area. Dr. Soliman performed a colonoscopy on 10/18/2024 which demonstrated a near obstructing
mass at the ileocecal valve, biopsies pending. CEA is elevated. There were also liver lesions suspicious metastatic spread.
POD #7 laparoscopic right hemicolectomy.
Returning bowel function, no BM as of yet but passing a good amount of flatus
Pain much improved
Tolerating LRD
Labs stable, AFVSS
Plan:
Continue LRD
OR path pending
Analgesics as needed
Out of bed and ambulate
Continue home bowel regimen with colace/miralax
Lovenox, SCDs
Ok for discharge home from surgical standpoint, discharge instructions updated
Subjective Data
-
Date of Service: October 25, 2024
Patient seen and examined at bedside with Dr. Martinez. Denies n/v. Passing a good amount of flatus. Pain continues to improve day by day, no pain currently. Tolerating diet.
Objective Data
-
Intake and Output
10/24/24 10/25/24 10/26/24
05:59 06:59 06:59
Intake Total 240 / 240
Output Total
Balance 240 / 240
Intake:
Oral fluids 240 / 240
IV fluids (Total)
Output:
Urine, Voided
Vital Signs
Temp Pulse Resp BP Pulse Ox
97.7 F 60 17 133/66 96
10/25/24 07:33 10/25/24 07:33 10/25/24 07:33 10/25/24 07:33 10/25/24 07:33
Lab Results
10/25/24 06:04
10/25/24 06:04
Calcium 9.3 mg/dl (8.4-10.2) 10/25/24 06:04
Magnesium 2.1 mg/dl (1.6-2.3) 10/16/24 09:53
Total Bilirubin Cancelled 10/16/24 12:33
Direct Bilirubin Cancelled 10/16/24 12:33
AST Cancelled 10/16/24 12:33
ALT Cancelled 10/16/24 12:33
Alkaline Phosphatase Cancelled 10/16/24 12:33
Total Protein Cancelled 10/16/24 12:33
Albumin Cancelled 10/16/24 12:33
Physical Exam
-
GENERAL/NEURO: Awake, Alert, no distress
CHEST: Unlabored breathing on RA
ABDOMEN: Soft, NT, ND, incisions clean, well approximated and with intact glue
Patient has a peters catheter: No
Patient has a central line: No
--- NOTE | 2024-10-25 12:47 | W.DCSUMMARY ---
Addendum entered and electronically signed by Adis Perkins MD 10/26/24 08:44:
Read, reviewed, and agree. See same day progress note for additional details. Time spent coordinating care, DC planning, review of DC plan of care with resident, transition of care, review of records in EMR, med rec, consults, notes, d/w
consultants, nursing, family,
Original Note:
Discharge Summary
Discharge Data
Date of Admission: 10/16/24
Date of Discharge: 10/25/24
-
Pending Results: Yes
Additional Pending Results:
Pathology report
Hospital Course
Discharging Physician : Adis Perkins MD ; Jean Paul Watson MD
Disposition : Home
Primary care physician : Gordon Hair Jr., DO
Principal Discharge diagnosis :
Ileocecal mass
Small bowel obstruction.
New hypodense liver lesions
Vasovagal syncope
Chronic Discharge diagnosis :
Chronic mild hyponatremia
Paroxysmal A-fib
Hypothyroidism
Hyperlipidemia
Diverticulosis
Chronic RBBB
Chronic back pain
Hospital Course :
Patient came to the hospital with severe abdominal pain, diaphoresis and brief episode of syncope. He was found by the EMS to be hypotensive at home. On arrival at the ED patient was pale and ill-appearing, with a blood pressure of 136/67, alert
and oriented. He denied any head trauma, vision changes, recent medication changes, or recent changes in bowel habits. He was also afebrile with WBC count of 9.3, and chemistry was only remarkable for a serum sodium level of 131. Patient was
treated with normal saline and admitted for further evaluation and management.
Vasovagal syncope: Patient was seen by cardiology, he was found to have vasovagal syncope due to pain and was monitored on telemetry throughout his stay in the hospital. His echocardiography did not reveal any structural heart disease that would
explain his syncope.
Small bowel obstruction: Patient was evaluated with CT of abdomen and pelvis which reported multiple dilated distal bowel loops extending into the ileocecal valve suspicious of SBO due to a mass in the ileocecal valve and several new small
hypodense lesions in the liver. There was also concerns for hepatic metastatic disease. This was also confirmed on abdominal MRI.
Ileocecal mass: While in the hospital, patient was seen in consultation with colorectal surgery, oncology and general surgery. 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
biopsied and sent for pathology. Due to the presence of shipman-diverticular disease noted during colonoscopy, right hemicolectomy was recommended by colorectal surgery which was done the next day. Patient had an unremarkable recovery, tolerated diet,
was passing flatus with no fever or hemodynamic instabilities prior to discharge. He was evaluated daily by the hospitalist team and general surgery throughout his postop recovery period.
New hypodense liver lesions: At discharge, patient pathology report for the biopsy was still pending and patient has been instructed to follow-up with colorectal surgery, oncology and his primary care physician after discharge for pathology reports
and plans moving forward.
Condition on discharge: Awake, alert and oriented x3, answer question properly, able to make own decision and take care of activities of daily living, speech clear and comprehensive, continent of the bowel and bladder, ambulate without assistance,
goes home where they lives with the family independently.
Important imaging findings :
Echocardiography 10/16/2024:
Normal biventricular size and systolic function without regional wall motion
abnormality. LVEF 55-60%.
No significant valvular disease.
Normal PASP (25 mmHg).
Unchanged from prior in 2017.
CT abdomen/pelvis 10/16/2024:
1. Several new small hypodense lesions within the liver. While nonspecific, they do raise concern for the presence of hepatic metastatic disease.
2. Multiple dilated distal small bowel loops which extend into the ileocecal valve. Findings are suspicious for small bowel obstruction, however no definitive transition point identified. The ileocecal valve appears patent. No discrete lesions
identified. Ileus is alternative consideration. Extensive colonic diverticulosis with moderate stool burden.
3. Moderately calcified, normal caliber abdominal aorta. No evidence for aneurysm.
Abdominal MRI 10/16/2024:
Probable diffuse small bowel ileus, partially visualized on this exam. Otherwise no convincing acute process in the abdomen.
There are several scattered small hepatic lesions suspicious for metastases.
Procedure findings :
Colonoscopy 10/18/2024:
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
ileocecal valve. Biopsied.
- Diverticulosis in the entire examined colon.
Recommendation: - Return patient to hospital [facility] for ongoing care.
- Clear liquid diet.
- Continue present medications.
- Await pathology results.
Discharge Plan
-
Patient Disposition: Home (Routine Discharge)
Discharge Diagnosis/Procedures: Ileocecal mass
Small bowel obstruction.
New hypodense liver lesions
Vasovagal syncope
Chronic mild hyponatremia
Paroxysmal A-fib
Hypothyroidism
Hyperlipidemia
Diverticulosis
Chronic RBBB
Chronic back pain
Condition: Good
Diet: Low Fiber
Activity: No strenuous activity
Additional Activity: Do not lift over 15lbs for the next 2-3 weeks
Driving Restrictions: As prior to admission
Bathing Restrictions: OK to Shower
Wound Care: The glue will flake off your incisions on its own over the net 2-3 weeks. Avoid soaking in tubs and pools for 2 weeks.
Activity Restrictions/Additional Instructions:
Call your surgeon if you have nausea with vomiting, worsening pain or a fever >100.5
Follow-up with surgeon for the biopsy results, to see if you need further treatment for this condition.
Referrals:
Gordon Hair Jr., [Family Provider] - in less than 1 week
Zoey Sesay MD [Active] - in two to four weeks
Justen Clark MD [Active] - in four to six weeks
Mark Burris MD [Active] - in two to four weeks
Additional Discharge Medication Instructions: Take Colace and MiraLAX for constipation.
Prescriptions:
New
docusate sodium 100 mg Capsule
100 mg PO DAILY Qty: 30 0RF
Continued
polyethylene glycol 3350 17 GRAMS powder in packet
17 grams PO DAILY
cyanocobalamin (vitamin B-12) 1,000 MCG tablet
1,000 mcg PO DAILY
ascorbic acid (vitamin C) [Vitamin C] 500 MG tablet
1,000 mg PO BID
Probiotic 1 EACH capsule
1 ea PO DAILY
tramadol 50 mg Tablet
50 mg PO BIDPRN PRN (Reason: moderate pain)
rosuvastatin 10 mg Tablet
10 mg PO QPM
natrzlstvtfc-rxjxbvas-gxhyhr Tablet
1 tab PO DAILY
cholecalciferol (vitamin D3) [Vitamin D3] 50 mcg (2,000 unit) Tablet
100 mcg PO DAILY
melatonin 3 mg Tablet
3 mg PO HS
levothyroxine 88 mcg tablet
88 mcg PO DAILY
fexofenadine 180 mg Tablet
180 mg PO DAILY Qty: 0 0RF
Discontinued
naproxen sodium [Aleve] 220 MG tablet
1 tab PO BIDPRN PRN (Reason: mild pain)
Discharge Orders:
Discharge Patient (As Directed); Ordered 10/25/24
Ordered By: Jean Paul Watson
Discharge Date and Time
Print Language: ZAMBIAN
--- NOTE | 2024-10-25 13:21 | CM ---
CM reviewed medical records. Patient is medically ready for discharge. NO needs noted.
PLAN: home no needs.
[2024-10-25 13:36] VITALS: BP 146/78
== END 2024-10-25 15:00 | disposition home or self-care (01) | DRG 330 ==
LOC: 1 ACUTE 13:04
PROVIDERS: Emergency Medicine; Registered Nurse; Student in an Organized Health Care Education/Training Program; Surgery; ADMITTING PHYSICIAN Internal Medicine; ATTENDING PHYSICIAN Hospitalist; CONSULT PHYSICIAN Internal Medicine Hematology & Oncology; CONSULT PHYSICIAN Student in an Organized Health Care Education/Training Program; CONSULT PHYSICIAN Surgery; EMERGENCY PHYSICIAN Emergency Medicine; FAMILY PHYSICIAN Family Medicine
PROC: 0DBC8ZX Excision of Ileocecal Valve, Via Natural or Artificial Opening Endoscopic, Diagnostic (ICD-10-PCS; 2024-10-18)
PROC: 0DTF4ZZ Resection of Right Large Intestine, Percutaneous Endoscopic Approach (ICD-10-PCS; 2024-10-20)
DX: C18.0 Malignant neoplasm of cecum (principal); C77.2 Secondary and unspecified malignant neoplasm of intra-abdominal lymph nodes; I47.19 Other supraventricular tachycardia; K57.32 Diverticulitis of large intestine without perforation or abscess without bleeding; C78.7 Secondary malignant neoplasm of liver and intrahepatic bile duct; E22.2 Syndrome of inappropriate secretion of antidiuretic hormone; R55 Syncope and collapse; I48.0 Paroxysmal atrial fibrillation; E03.9 Hypothyroidism, unspecified; E78.2 Mixed hyperlipidemia; I45.10 Unspecified right bundle-branch block; G89.29 Other chronic pain; Z85.828 Personal history of other malignant neoplasm of skin; G62.9 Polyneuropathy, unspecified; I11.9 Hypertensive heart disease without heart failure; I44.30 Unspecified atrioventricular block; Z88.6 Allergy status to analgesic agent; Z88.1 Allergy status to other antibiotic agents; Z88.0 Allergy status to penicillin; Z66 Do not resuscitate; Z79.890 Hormone replacement therapy; G47.33 Obstructive sleep apnea (adult) (pediatric); I25.10 Atherosclerotic heart disease of native coronary artery without angina pectoris
CPT/HCPCS: 88305; 88309; 74174; 74183; 80048; 80053; 80076; 82105; 82378; 83690; 83735; 83930; 83935; 84300; 84443; 85025; 85027; 86850; 86900; 86901; 88342; 93005; 93306; 96361; 96374; 97112; 97116; 97162; 97166; 97530; 97535; 99285; A9575; C1776; Q9967

== ENCOUNTER → 2024-11-20 08:16 | Outpatient (REF) | payer OTHER, SELFPAY | LOC: PET 08:16 | PROVIDERS: ATTENDING PHYSICIAN Internal Medicine Hematology & Oncology | DX: C18.2 Malignant neoplasm of ascending colon (principal) | CPT/HCPCS: 78815; A9552 ==

== ENCOUNTER → 2025-01-28 10:28 | Outpatient (REF) | payer OTHER, SELFPAY | LOC: HWRAD 10:28 | PROVIDERS: ATTENDING PHYSICIAN Nurse Practitioner Adult Health; FAMILY PHYSICIAN Family Medicine | DX: S22.31XD Fracture of one rib, right side, subsequent encounter for fracture with routine healing (principal) | CPT/HCPCS: 71101 ==